=== PATIENT | female | born 1970 | race Two or more races ===

== ENCOUNTER 2025-04-14 07:16 | Inpatient (IN) | payer MEDICAID, SELFPAY ==
[2025-04-14] VITALS (13 sets, daily range): BP systolic 92–146; BP diastolic 51–91; PULSE 38–61; RESP 14–20; TEMP 36.3–37.1; O2SAT 92–99; BMI 26.6; BMI 26.9
--- NOTE | 2025-04-14 | XR_ITS ---
Examination: MRI abdomen with intravenous contrast. MRI abdomen without intravenous contrast. Date and time of exam: April 14, 2025, 1023 hours INDICATIONS: Multiple liver lesions on abdomen sonogram this morning Technique: Multiple axial, sagittal and coronal sections of the abdomen obtained. Transverse images, TR 6020, TE 107. T1 weighted transverse images, TR 582, TE 9.5. T2-weighted sagittal images, TR 4000, TE 105. T2-weighted sagittal images, TR 4000, TE 5. Coronal images, TR 4210, TE 107. Axial and coronal images are obtained post 19 cc intravenous injection, gadolinium. Findings: Precontrast images demonstrate heterogeneous signal throughout the liver 4 mm hyperintense lesion left lobe of the liver image 13 Postcontrast images demonstrate no convincing abnormal enhancement involving the relations Spleen is not enlarged No contralateral common bile duct stones Contracted gallbladder Spleen not enlarged No hydronephrosis No ascites IMPRESSION: No convincing enhancing liver lesions noted, consider focal areas of fatty sparing producing the liver lesions depicted on the ultrasound examination Recommend hepatic ultrasound follow-up in 3 months with a radiologist in attendance
--- NOTE | 2025-04-14 07:22 | EKG_ITS ---
[facility] Test Date: 2025-04-14 Pat Name: ROM ALMAGUER Department: Room: - Gender: Female Digital Assistant: : 1970 Requested By: Jesus Keller Order Number: [id number] Reading MD: Jesus Keller Measurements Intervals [place] Rate: 59 P: 17 [place]: 165 QRS: -7 QRSD: 89 T: 48 QT: 431 QTc: 427 Interpretive Statements SINUS BRADYCARDIA WITH OCCASIONAL VENTRICULAR PREMATURE COMPLEXES No previous ECG available for comparison /store/S0/[id number]/[id number].pdf
--- NOTE | 2025-04-14 07:33 | EDNOTE_ITS ---
ED Chest Pain RME/HPI General Chief Complaint: Chest Pain Stated Complaint: Left side chest pain, anxious Time Seen by Provider: 04/14/25 07:34 Arrival date/time: 04/14/25 07:16 RME / HPI RME / HPI narrative: See MDM for Dr. Landry's HPI documentation. Related Data Allergies Allergy/AdvReac Type Severity Reaction Status Date / Time No Known Drug Allergies Allergy Verified 04/14/25 07:21 Review of Systems Review of Systems Systems Reviewed: All systems reviewed, normal except as documented Past Medical History Past Medical History GASTROINTESTINAL: Positive Gastrointestinal Disorders (gastritis) and Colitis Family History FAMILY HISTORY: Negative Family Gastrointestinal Problems Surgical History SURGICAL: Positive Abdominal Surgery Social History SMOKING STATUS: Never smoker ED Exam Narrative Physical exam: See MDM for Dr. Landry's physical exam documentation. Course Quality Measures none Orders Category Date Time Status Bedside COVID-19 Antigen Test NOW Care 04/14/25 07:35 Active COVID-19 Screening Questionnaire NOW Care 04/14/25 13:04 Active Decision to Admit X1 Care 04/14/25 13:04 Completed EKG (ED ONLY) *Do not use* NOW Care 04/14/25 07:23 Completed EKG (ED ONLY) *Do not use* NOW Care 04/14/25 13:03 Completed MRI Screening NOW Care 04/14/25 09:36 Active Saline [Insert IV] NOW Care 04/14/25 07:35 Active Consult to Cardiology Stat Cons 04/14/25 12:46 Ordered EKG (ED Only) Stat Exams 04/14/25 07:22 Draft EKG (ED Only) Stat Exams 04/14/25 13:03 Draft MR abdomen wo/w con Stat Exams 04/14/25 Completed US gall bladder Stat Exams 04/14/25 07:35 Completed XR chest 1V portable Stat Exams 04/14/25 07:35 Completed Amylase Stat Lab 04/14/25 08:03 Completed BNP [B-Type Natriuretic Peptide] Stat Lab 04/14/25 08:03 Completed Bilirubin,Direct Stat Lab 04/14/25 08:03 Completed CBC Stat Lab 04/14/25 08:03 Completed CMP [Comprehensive Metabolic Panel] Stat Lab 04/14/25 08:03 Completed D-Dimer Stat Lab 04/14/25 08:03 Completed HCG Qualitative,Urine Stat Lab 04/14/25 08:45 Completed Influenza A & B Rapid Panel Stat Lab 04/14/25 08:50 Completed Lipase Stat Lab 04/14/25 08:03 Completed Magnesium Stat Lab 04/14/25 08:03 Completed PT [Prothrombin Time with INR] Stat Lab 04/14/25 08:03 Completed PTT [Partial Thromboplastin Time] Stat Lab 04/14/25 08:03 Completed TSH [Thyroid Stimulating Hormone] Stat Lab 04/14/25 08:03 Completed Troponin I Stat Lab 04/14/25 08:03 Completed Troponin I Stat Lab 04/14/25 11:59 Completed UA, C/S IF [Urinalysis, C/S if Indicated] Stat Lab 04/14/25 08:45 Completed ALPRazoLAM [Xanax] Med 04/14/25 07:35 Discontinued 0.5 mg PO X1 ONE Heparin Inj Med 04/14/25 12:45 Discontinued 4,000 unit IV X1 ONE Heparin/D5w 25K 250 ML Ivpb [Heparin in D5w Ivpb] Med 04/14/25 12:45 Active 25,000 unit in 250 ml IV 12 units/kg/hr LORazepam [Ativan Inj] Med 04/14/25 11:10 Discontinued 1 mg IVP X1 ONE Morphine* Inj Med 04/14/25 10:18 Discontinued 4 mg IM X1 ONE Morphine* Inj Med 04/14/25 10:28 Discontinued 4 mg IVP X1 ONE Ondansetron Inj [Zofran Inj] Med 04/14/25 07:35 Discontinued 4 mg IVP X1 ONE Ondansetron Inj [Zofran Inj] Med 04/14/25 11:10 Discontinued 4 mg IVP X1 ONE Pantoprazole Inj [Protonix Inj] Med 04/14/25 13:44 Discontinued 40 mg IVP X1 ONE Sodium Chloride 0.9% 1000 ml [Ns] 1,000 ml Med 04/14/25 07:35 Discontinued IV 999 mls/hr Sodium Chloride 0.9% 1000 ml [Ns] 1,000 ml Med 04/14/25 11:10 Discontinued IV 999 mls/hr EKG (RT) Stat RT 04/14/25 13:03 Draft Vital Signs Vital signs: Vital Signs Temperature 98.0 F 04/14/25 07:35 Pulse Rate 55 L 04/14/25 07:35 Respiratory Rate 19 04/14/25 07:35 Blood Pressure 136/86 H 04/14/25 07:35 Pulse Oximetry (%) 98 04/14/25 07:35 Oxygen Delivery Method Room Air 04/14/25 07:35 Pulse ox is 98% on room air which is adequate. Chest Pain MDM Narrative MDM Narrative:: This section includes all my notes and documentations, including HPI, PE, and ED course. Jesus Landry MD HPI: 54-year-old female here with severe substernal chest pain for the past couple hours. With nausea and anxiety. No recent illness with cough or fever. No shortness of breath. No leg pain or swelling. No other complaints. ROS: All negative except as documented in HPI. Physical Exam: General: Alert and oriented. Appears uncomfortable. Eyes: Conjunctivae and lids clear. ENT: No nasal congestion. Pharynx normal. Tympanic membrane normal bilaterally. Neck: Supple. No JVD. Heart: RRR. Lungs: No respiratory distress. Decreased air movement. No severe rhonchi, wheezing, rales. Chest: No tenderness with palpation. Abdomen: Soft and nontender. Normal bowel sounds. No distension. No rebound or guarding. Back: No CVA tenderness. Legs: No clubbing, cyanosis, edema. Skin: Warm and dry. Neuro: Alert and oriented X 3. Cranial Nerves II-XII grossly intact. No peripheral motor deficits. I reviewed all diagnostic test results: My interpretation of the EKG is: Sinus rhythm (59 bpm) with PACs and nonspecific ST-T changes. My interpretation of the chest x-ray is: NAD My review of the US gallbladder report is: Liver lesions noted, recommended MRI. My review of the MRI abdomen report is: No definite liver lesions, no acute findings. Blood/urine tests remarkable for delta troponin 1.780. Covid/Influenza are negative. At this point, diagnoses include: NSTEMI Treatment during the long course of ED included: IVF Zofran 4 mg IV x 2 Oral Xanax 0.5 mg Morphine 4 mg IV Ativan 1 mg IV Heparin bolus and drip Some improvement noted. I discussed the case with our art objects salesperson, Dr. Franco, and our hospitalist. About the presentation and exam and diagnostics and treatments here. And need of further care in the hospital. Will accept the patient. Jesus Landry MD Patient data External records reviewed:: [facility] previous records Clinical information provided by:: patient Social determinants that could affect healthcare access:: none Patient has the following chronic illnesses:: None reported How is presenting disease/condition affected by chronic disease/condition?: exacerbated by Evaluation data The following diagnostics were reviewed and interpreted by me:: EKG tracing(s) (My interpretation of the EKG is: Sinus rhythm (59 bpm) with PACs and nonspecific ST-T changes. Jesus Landry MD) Lab and/or radiology exams considered but not ordered:: None Interpretation Summary: I reviewed all diagnostic test results: My interpretation of the EKG is: Sinus rhythm (59 bpm) with PACs and nonspecific ST-T changes. My interpretation of the chest x-ray is: NAD My review of the US gallbladder report is: Liver lesions noted, recommended MRI. My review of the MRI abdomen report is: No definite liver lesions, no acute findings. Blood/urine tests remarkable for delta troponin 1.780. Covid/Influenza are negative. Medications / Prescriptions Medications or Prescriptions considered but not ordered:: None Medication administrations:: Medication Administration History Acetaminophen (Acetaminophen 325 Mg Tablet) 650 mg PO Q6H PRN PRN Reason: Fever >100.4 or Pain 1-4 Stop: 05/14/25 14:29 Last Admin: 04/14/25 14:59 Dose: 650 mg Documented By: BY Aspirin (Aspirin Ec 81 Mg Tabec) 81 mg PO QDAY [facility] Stop: 05/15/25 08:59 Atropine Sulfate (Atropine Sulf Inj 1 Mg/Ml Vial) 0.5 mg IVP Q3M PRN PRN Reason: BRADYCARDIA <30 Bismuth Subsalicylate (Bismuth Subsalicyl 1 Ml) 17.4 ml PO QID [facility] Stop: 05/14/25 15:14 Last Admin: 04/14/25 16:23 Dose: Not Given Documented By: DB Non-Admin Reason: Change of Condition Clopidogrel Bisulfate (Clopidogrel Bisulfate 75 Mg Tablet) 75 mg PO QDAY [facility] Stop: 05/15/25 08:59 Heparin Sodium/Dextrose (Heparin In D5w Ivpb) 25,000 unit in 250 mls @ 8.995 mls/hr IV .Q24H KATRIN; Protocol Stop: 04/28/25 12:44 Last Admin: 04/14/25 13:32 Dose: 12 units/kg/hr, 8.995 mls/hr Documented By: BY Co-signed By: BD Metronidazole (Metronidazole 250 Mg Tablet) 500 mg PO QID [facility] Stop: 04/21/25 16:59 Ondansetron HCl (Ondansetron Inj 2 Mg/Ml Inj 2 Ml) 4 mg IVP Q6H PRN; Protocol PRN Reason: NAUSEA OR VOMITING Stop: 05/14/25 14:29 Pantoprazole Sodium (Pantoprazole Inj 40 Mg Vial) 40 mg IVP BID [facility] Stop: 05/14/25 20:59 Tetracycline HCl (Tetracycline 250 Mg Capsule) 500 mg PO QID [facility] Stop: 04/21/25 16:59 Discontinued Medications Alprazolam (Alprazolam 0.25 Mg Tablet) 0.5 mg PO X1 ONE Stop: 04/14/25 07:36 Last Admin: 04/14/25 08:43 Dose: 0.5 mg Documented By: BY Aspirin (Aspirin Ec 81 Mg Tabec) 81 mg PO X1 ONE Stop: 04/14/25 14:58 Last Admin: 04/14/25 15:10 Dose: 81 mg Documented By: BY Atropine Sulfate (Atropine Sulf Inj 1 Mg/Ml Vial) 0.5 mg IVP Q5M PRN PRN Reason: BRADYCARDIA <30 Clopidogrel Bisulfate (Clopidogrel Bisulfate 75 Mg Tablet) 75 mg PO X1 ONE Stop: 04/14/25 14:58 Last Admin: 04/14/25 15:10 Dose: 75 mg Documented By: BY Heparin Sodium (Porcine) (Heparin Sod Inj 5000 Unit/Ml Vial) 4,000 unit IV X1 ONE; Protocol Stop: 04/14/25 12:46 Last Admin: 04/14/25 13:07 Dose: 4,000 unit Documented By: BY Co-signed By: ALEIDA Sodium Chloride (Ns) 1,000 mls @ 999 mls/hr IV .Q1H1M ONE Stop: 04/14/25 08:35 Last Infusion: 04/14/25 10:32 Dose: Infused Documented By: Admin: 04/14/25 08:43 Dose: 999 mls/hr Documented By: BY Sodium Chloride (Ns) 1,000 mls @ 999 mls/hr IV .Q1H1M ONE Stop: 04/14/25 12:10 Last Infusion: 04/14/25 12:21 Dose: Infused Documented By: Admin: 04/14/25 11:20 Dose: 999 mls/hr Documented By: BY Lactated Ringer's (Lactated Ringers) 500 mls @ 999 mls/hr IV .Q31M ONE Stop: 04/14/25 16:07 Last Infusion: 04/14/25 16:21 Dose: Infused Documented By: Admin: 04/14/25 15:43 Dose: 999 mls/hr Documented By: DB Comments: we only have 1000ml bag in ER, no 500ml, set the pump to only give 500ml Lorazepam (Lorazepam 2 Mg/Ml Vial) 1 mg IVP X1 ONE Stop: 04/14/25 11:11 Last Admin: 04/14/25 11:23 Dose: 1 mg Documented By: BY Metoclopramide HCl (Metoclopramide Inj 5 Mg/Ml Vial 2 Ml) 10 mg IVP X1 ONE; Protocol Stop: 04/14/25 14:30 Last Admin: 04/14/25 14:53 Dose: 10 mg Documented By: BY Morphine Sulfate (Morphine Sulf Inj 4 Mg/Ml Vial) 4 mg IM X1 ONE Stop: 04/14/25 10:19 Last Admin: 04/14/25 10:29 Dose: Not Given Documented By: EF Non-Admin Reason: switched to ivp Morphine Sulfate (Morphine Sulf Inj 4 Mg/Ml Vial) 4 mg IVP X1 ONE Stop: 04/14/25 10:29 Last Admin: 04/14/25 10:29 Dose: 4 mg Documented By: EF Ondansetron HCl (Ondansetron Inj 2 Mg/Ml Inj 2 Ml) 4 mg IVP X1 ONE; Protocol Stop: 04/14/25 07:36 Last Admin: 04/14/25 08:43 Dose: 4 mg Documented By: BY Ondansetron HCl (Ondansetron Inj 2 Mg/Ml Inj 2 Ml) 4 mg IVP X1 ONE; Protocol Stop: 04/14/25 11:11 Last Admin: 04/14/25 11:21 Dose: 4 mg Documented By: BY Pantoprazole Sodium (Pantoprazole Inj 40 Mg Vial) 40 mg IVP X1 ONE Stop: 04/14/25 13:45 Last Admin: 04/14/25 13:58 Dose: 40 mg Documented By: EF Treatment during the long course of ED from ar included: IVF Zofran 4 mg IV x 2 Oral Xanax 0.5 mg Morphine 4 mg IV Ativan 1 mg IV Heparin bolus and drip Consultations Consultation(s) initiated? (list below): Yes Consultation #1 (Physician, Specialty, Details): I discussed the case with our art objects salesperson, Dr. Franco, and our hospitalist. About the presentation and exam and diagnostics and treatments here. And need of further care in the hospital. Will accept the patient. Time: 12:43 Diagnosis Chest Pain Differential Diagnosis: pneumothorax, stable angina, unstable angina pectoris, atypical chest pain, st elevation myocardial infarction and costochondritis Most likely diagnosis given after review of the tests above:: NSTEMI Admission Indicated Admission indicated?: indicated Explain why admission is indicated or not indicated:: NSTEMI Admission Request Was there a request for admission?: Yes Admission Attestation Admission request attestation: Discussed case with our hospitalist service regarding admission. Discussed patients ED course, exam findings, labs, and radiology results. Agreed to accept the patient for admission. Disposition Plan Disposition Plan: Admit Critical Care Time Critical Care Time Critical Care Time: Yes Total Critical Care Time (min.): 36 Attestation: Due to a high probability of clinically significant, life threatening deterioration, the patient required my highest level of preparedness to intervene emergently and I personally spent this critical care time directly and personally managing the patient. This critical care time included obtaining a history; examining the patient; ordering and review of studies; arranging urgent treatment with development of a management plan; evaluation of patient's response to treatment; frequent reassessment; and discussions with family and other providers. It was exclusive of separately billable procedures and treating other patients and teaching time. Jesus Landry MD Discharge Plan Plan Patient Disposition: Admit Acute Care w/in Hospital Problem List Clinical Impression: Non-ST elevation MS (NSTEMI)
--- NOTE | 2025-04-14 07:35 | XR_ITS ---
EXAMINATION: AP chest single view TECHNIQUE: 1. AP port upright chest single view Date and time: April 14, 2025, 0816 hours INDICATIONS: Chest pain shortness of breath today. FINDINGS: Normal heart size Lungs are clear. The osseous structures are intact IMPRESSION: No active disease
--- NOTE | 2025-04-14 07:35 | XR_ITS ---
Examination: Abdomen sonogram, Limited Date and time of exam: April 14, 2025, 0737 hours INDICATIONS: Onset chest pain epigastric pain abdominal pain today Technique: Real-time lai scale transabdominal sonographic images of the upper abdomen obtained. Findings: Normal gallbladder. Normal common bile duct 0.4 cm Pancreatic head 2.4 cm Liver 17.0 cm, liver lesions, the largest in the right lobe 14 x 11 x 11 mm, the largest in the left lobe 27 x 24 x 28 mm Fatty infiltration throughout the liver Normal abdominal pedal portal venous flow Patent IVC IMPRESSION: Recommend MRI abdomen follow-up, pre and post contrast, to assess multiple liver lesions
[2025-04-14 08:36] LABS: Basophils # (Auto) 0.0 Thou/mm3 (0.0-0.2); Basophils % (Auto) 0 % (0-2.5); Eosinophils # (Auto) 0.3 Thou/mm3 (0.0-0.5); Eosinophils % (Auto) 3 % (0-10); Hematocrit 45.1 % (36.0-46.0); Hemoglobin 15.2 g/dL (12.0-16.0); Immature Granulocytes Auto 0.02 Thou/mm3 (0.00-0.00); Lymphocytes # (Auto) 3.4 Thou/mm3 (1.0-4.8); Lymphocytes % (Auto) 32 % (10-50); Mean Corpuscular HGB Conc 33.7 g/dl (31.0-37.0); Mean Corpuscular Hemoglobin 30.7 pg (25.0-35.0); Mean Corpuscular Volume 91 fL (80-100); Monocytes # (Auto) 0.8 Thou/mm3 (0.0-0.8); Monocytes % (Auto) 7 % (0-12); Neutrophils # (Auto) 5.9 Thou/mm3 (1.8-7.7); Neutrophils % (Auto) 57 % (37-80); Nucleated Red Blood Cell # 0.00 Thou/mm3 (0.00-0.00); Nucleated Red Blood Cell % 0 /100 WBC (0); Platelet Count 487 Thou/mm3 (140-440); RDW Standard Deviation 47.5 fL (36.4-46.3); Red Blood Count 4.95 Miln/mm3 (4.00-5.20); White Blood Count 10.5 Thou/mm3 (3.6-11.0)
[2025-04-14] MEDS: ONDANSETRON INJ 2 MG/ML INJ 2 ML 4 MG IVP ×2 (08:43→11:21)
[2025-04-14] MEDS: SODIUM CHLORIDE 0.9% 1000 ML 1,000 ML 999 ML IV ×2 (08:43→11:20)
[2025-04-14 08:50] LABS: B-Type Natriuretic Peptide < 20 pg/mL (0-100)
[2025-04-14 08:54] LABS: D-Dimer < 250 ng/mL (<600)
[2025-04-14 08:56] LABS: Alanine Aminotransferase 34 U/L (10-49); Albumin, Serum 4.8 gm/dL (3.5-5.0); Albumin/Globulin Ratio 1.7 (1.2-2.2); Alkaline Phosphatase 90 U/L (46-116); Amylase 56 U/L (30-118); Anion Gap 10 (7-16); Aspartate Amino Transferase 27 U/L (0-34); BUN/Creatinine Ratio 10 Ratio (12-20); Bilirubin,Direct 0.1 mg/dL (0.0-0.3); Bilirubin,Total 0.6 mg/dL (0.3-1.2); Blood Urea Nitrogen 8 mg/dL (9-23); Calcium 9.8 mg/dL (8.3-10.6); Calcium (Corrected) 9.8 mg/dL (8.5-10.1); Carbon Dioxide 29.4 mMol/L (20.0-31.0); Chloride 101 mMol/L (98-107); Creatinine (Component) 0.8 mg/dL (0.6-1.3); Estimated Creatinine Clearance 83.2 mL/min (>60); Globulin 2.9 gm/dL (2.3-3.5); Glucose 115 mg/dL (74-106); Lipase 27 U/L (12-53); Magnesium 2.1 mg/dL (1.6-2.6); Osmolality,Calculated 278 (275-295); Potassium 4.2 mMol/L (3.4-5.1); Sodium 140 mMol/L (136-145); Thyroid Stimulating Hormone 0.71 uIU/mL (0.55-4.78); Total Protein 7.7 gm/dL (5.7-8.2); Troponin I 0.045 ng/mL (0.0-0.045); eGFR > 60 See Note
[2025-04-14 09:03] LABS: Collection Type, Urine Clean Catch
[2025-04-14 09:28] LABS: Bilirubin,Urine Negative (Negative); Blood,Urine Negative (Negative); Clarity,Urine Turbid (Clear/Hazy); Color,Urine Yellow (Lt Yel-Yel); Culture Indicated,Urine Not Indicated; Glucose, Urine Negative (Negative); Ketones,Urine Negative (Negative); Leukocyte Esterase,Urine Positive (Negative); Nitrite,Urine Negative (Negative); PH,Urine 6.0 (5.0-7.0); Protein,Urine Trace (Neg - Trace); RBC,Urine 1 /hpf (0-3); Specific Gravity,Urine 1.021 (1.001-1.035); Squamous Epithelial Cell,Urine 20 /hpf (0-5); Urobilinogen,Urine Negative mg/dL (0.0-1.0); WBC,Urine 1 /hpf (0-5)
[2025-04-14 09:49] LABS: HCG Qualitative,Urine Negative
[2025-04-14 09:59] LABS: Sperm,Urine Present
[2025-04-14] MEDS: MORPHINE SULF INJ 4 MG/ML VIAL IVP (10:29)
[2025-04-14 11:18] LABS: Influenza A Ag Negative; Influenza B Ag Negative
[2025-04-14] MEDS: LORazepam 2 MG/ML VIAL 1 MG IVP (11:23)
[2025-04-14 12:41] LABS: Troponin I 1.780 ng/mL (0.0-0.045)
[2025-04-14 13:03] LABS: INR 1.0 (0.9-1.3); Partial Thromboplastin Time 30.9 Seconds (22.0-36.0); Prothrombin Time 10.8 Seconds (9.0-12.2)
--- NOTE | 2025-04-14 13:03 | EKG_ITS ---
[facility] Test Date: 2025-04-14 Pat Name: ROM ALMAGUER Department: Room: - Gender: Female Winch Runner: : 1970 Requested By: Melina Cortes Order Number: [id number] Reading MD: Melina Cortes Measurements Intervals [place] Rate: 42 P: 180 SC: 180 QRS: 192 QRSD: 82 T: 134 QT: 481 QTc: 404 Interpretive Statements ECTOPIC ATRIAL BRADYCARDIA LOW QRS VOLTAGE IN PRECORDIAL LEADS [QRS DEFLECTION < 1.0 mV IN CHEST LEADS] LATERAL MYOCARDIAL INFARCTION , OF INDETERMINATE AGE [40+ ms Q WAVE AND/OR ST/T ABNORMALITY IN I/aVL/V5/V6] Compared to ECG 04/14/2025 13:18:31 Bradycardia, nonsinus now present Low QRS voltage now present Myocardial infarct finding now present Sinus bradycardia no longer present T-wave abnormality no longer present /store/S0/[id number]/[id number].pdf
--- NOTE | 2025-04-14 13:03 | EKG_ITS ---
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
[2025-04-14] MEDS: HEPARIN SOD INJ 5000 UNIT/ML VIAL 4000 UNIT IV (13:07)
[2025-04-14] MEDS: Heparin/D5w 25K 250 ML Ivpb 25,000 UNIT/250 ML BAG 8.995 UNIT IV (13:32)
--- NOTE | 2025-04-14 14:36 | ECHO_ITS ---
Patient Info Name: Jessica Adrian Age: 54 years : 1970 Gender: Female Ht: 168 cm Wt: 75 kg BSA: 1.88 m2 BP: 113 / 72 mmHg HR: 53 bpm Heart Rhythm: Bradycardia Exam Date: 04/16/2025 9:28 AM Admit Date: 04/14/2025 Site: [facility] Patient Status: I Technical Quality: Fair Exam Type: CA echo doppler complete [employer] Assistant: Janis Betancur Ordering Physician: Wilman Malloy Study Info Indications NSTEMI, assess EF, wall motion, and valves - Primary Location: S2NX Left Ventricular Outflow Tract Name Value Normal LVOT 2D LVOT Diameter 1.6 cm LVOT Doppler LVOT Peak Velocity 95 cm/s LVOT Mean Gradient 2 mmHg LVOT VTI 26 cm LVOT VTI/AV VTI Ratio 0.7 LVOT Stroke Volume 52 ml Pulmonic Valve Name Value Normal PV Doppler PV Peak Velocity 94 cm/s Mitral Valve Name Value Normal MV Doppler MV Decel [place] 467 cm/s2 MV PHT 52 ms MV Area (PHT) 4.2 cm2 4.0-5.0 MV Diastolic Function MV E Peak Velocity 84 cm/s MV A Peak Velocity 73 cm/s MV E/A 1.2 MV Annular TDI MV Septal e' Velocity 7.1 cm/s MV E/e' (Septal) 11.9 MV Lateral e' Velocity 11.1 cm/s MV E/e' (Lateral) 7.6 MV e' Average 9.09 cm/s MV E/e' (Average) 9.7 Tricuspid Valve Name Value Normal TV Regurgitation Doppler TR Peak Velocity 185 cm/s TV Annular TDI TV Lateral Radha s' Velocity 16.0 cm/s >=9.5 Aorta Name Value Normal Ascending Aorta Ao Root Diameter (MM) 2.6 cm Ao Root Diam Index (MM) 1.4 cm/m2 Aortic Valve Name Value Normal AV 2D/MM AV Cusp Sep (MM) 2.0 cm AV Doppler AV Peak Velocity 155 cm/s AV Mean Gradient 5 mmHg AV VTI 40 cm AV Area (Cont Eq VTI) 1.3 cm2 >=3.0 AV Area (Cont Eq [place]) 1.2 cm2 AV DI ([place]) 0.61 AV Regurgitation 2D LVOT Area 2.0 cm2 Ventricles Name Value Normal LV Dimensions 2D/MM IVS Diastolic Thickness (2D) 0.7 cm 0.6-0.9 LVID Diastole (2D) 4.2 cm 3.8-5.2 LVIW Diastolic Thickness (2D) 0.9 cm 0.6-0.9 LVID Systole (2D) 2.7 cm 2.2-3.5 LVOT Diameter 1.6 cm LV Mass (2D Cubed) 101.29 g 67.00-162.00 LV Mass Index (2D Cubed) 54 g/m2 43-95 Relative Wall Thickness (2D) 0.43 <=0.42 IVS/LVIW Diastolic Thickness (2D) 0.78 0.00-1.50 LV Fractional Shortening/Ejection Fraction 2D/MM LV Fractional Shortening (2D) 36 % 27-45 LV EF (2D [place]holz) 66 % LV Diastolic Volume (4C MOD) 67 ml LV EF (4C MOD) 63 % LV Diastolic Volume (2C MOD) 70 ml LV EF (2C MOD) 69 % LV Diastolic Volume (BP MOD) 73 ml 46-106 LV Diastolic Volume Index (BP MOD) 39 ml/m2 29-61 LV Systolic Volume (BP MOD) 24 ml 14-42 LV Systolic Volume Index (BP MOD) 13 ml/m2 8-24 LV EF (BP MOD) 67 % 54-74 LV Diastolic Length (4C) 5.8 cm LV Systolic Length (4C) 4.8 cm LV Stroke Volume (4C MOD) 42 ml RV Dimensions 2D/MM TV Lateral Radha s' Velocity 16.0 cm/s >=9.5 Atria Name Value Normal LA Dimensions LA Dimension (MM) 2.6 cm 2.7-3.8 LA Volume (4C A-L) 23 ml LA Volume (BP A-L) 31 ml Left Ventricle Left ventricular chamber dimension is normal. Left ventricular systolic function is normal with an ejection fraction by Biplane Method of Discs of 67 %. There is normal geometry noted in the left ventricle. Left ventricular segmental wall motion is normal. There is normal diastolic function in the left ventricle. Right Ventricle Right ventricular chamber dimension is normal. Right ventricular systolic function is normal. Left Atrium Left atrial chamber dimension is normal. Right Atrium Right atrial chamber dimension is normal. Aortic Valve The aortic valve is trileaflet. There is no aortic valve sclerosis. There is no aortic valve stenosis with a peak velocity of 155 cm/s, mean gradient of 5 mmHg, and aortic valve area of 1.3 cm2. There is no aortic valve regurgitation. Pulmonic Valve The pulmonic valve is normal. There is no pulmonic valve stenosis. There is no pulmonic regurgitation. Mitral Valve The mitral valve has normal leaflets. There is no mitral valve stenosis. There is mild mitral valve regurgitation. Tricuspid Valve There is no tricuspid valve stenosis. There is mild tricuspid valve regurgitation. Pericardium/Pleural The pericardium appears normal. There is no pericardial effusion. No pleural effusion visualized. Aorta The aortic measurements are indexed to age and body surface area. Summary 1. Left ventricle size is normal and systolic function is normal. Estimated ejection fraction is 55-60%. There is normal diastolic function. There is normal geometry noted. 2. right ventricle chamber size is normal and systolic function is normal. Report Signatures Finalized by Zohaib Franco on 04/16/2025 02:25 PM
--- NOTE | 2025-04-14 14:38 | ESHP_ITS ---
<Statement entered by Jj Mayfield MD - 04/14/25 17:24> I saw and examined patient personally and supervised PGY 1 resident, Dr. Malloy with formulating a management plan. I agree with the documentation with the exceptions as listed below. Patient is a 54-year-old female with past medical history significant for hyperlipidemia and H. pylori infection diagnosed last week by urea breath test. She presented with a chief complaint of substernal chest pain for 3 hours prior to hospitalization. She will be admitted for NSTEMI. Problem list: 1. NSTEMI 2. ACS 3. Asymptomatic bradycardia 4. Intractable nausea and vomiting 5. H. pylori infection 6. MASLD 7. Incidental liver lesions Patient presented with substernal chest pain for past 3 hours prior to presentation. Described as pressure-like, 10 out of 10 in intensity with no aggravating or relieving factors. Initial troponin was 0.045 which up trended to 1.78. EKG showed sinus bradycardia with occasional PVCs. Rate 59 and QTc 427. For her NSTEMI embosser apprentice, Dr. Franco recommended starting patient on heparin infusion along with aspirin and Plavix. He said she may need cardiac catheterization on Thursday. [facility] is closed over the weekend. If patient becomes hypotensive, bradycardic or otherwise hemodynamically unstable she will need emergent transfer to another facility with 24-hour cardiac catheterization lab services. Patient also has a very low threshold for upgrade to the ICU if she becomes hemodynamically unstable. For patient's H. pylori infection she was started on quadruple therapy with pantoprazole, bismuth, tetracycline and metronidazole. With regards to her intractable nausea and vomiting she was scheduled on ondansetron and metoclopramide 10 Mg IV x 1 was given. Plan of care discussed with Attending Dr. Sophia Mayfield MD PGY 2 Disclaimer: This note was dictated by speech recognition. Minor errors in medical staff manager may be present due to voice recognition software. Documentation for date of: 04/14/25 HPI History of Present Illness History of present illness: Patient is a Kazakh-speaking 54-year-old female with a PMH of hyperlipidemia and H. pylori infection diagnosed last week by urea breath test who presented on 04/14 with a chief complaint of substernal chest pain for 3 hours prior to hospitalization. History was obtained mostly from patient's Kazakh-speaking daughter via aerospace project manager services. Per daughter, patient's chest pain started at 5 AM in the morning and was substernal with radiation to the back and arm with associated hand numbness. Patient also endorsed that the pain was burning in character. Her chest pain was reported to have been ongoing for years and usually was alleviated by drinking cold water. However, the pain from this morning was much more severe and intractable. Patient endorsed vomiting twice before arriving in the ED but denied symptoms of fever, cough, shortness of breath, abdominal pain, painful urination, or lower extremity edema. Pain rated at a 10 out of 10. PMH: As above PSH: Tubal ligation Medications: Unspecified medication for hyperlipidemia Allergies: NKDA FH: Dad has prostate cancer for which he has had multiple surgeries, brother of throat cancer SH: No history of alcohol use, smoking, or recreational drug use In the ED, vitals showed: BP 136/86 HR 55 RR 19 Temp 98.0 SpO2 98% on room air CBC showed platelet count 487 but was otherwise WNL. Coagulation panel was WNL. CMP showed troponin I 1.780 at 11:59 but later up trended to 22.758 at 17:55. UA was bland. Serological studies were negative for influenza A and B. Imagin/31 abdominal MRI was unremarkable. 04/14 EKG at 07: 31 showed sinus bradycardia of HR 59 with occasional VPCs but repeat EKG at 15: 35 showed ectopic atrial bradycardia of HR 42 with low QRS voltage in precordial leads and new lateral myocardial infarction of indeterminate age. 04/14 CXR was unremarkable. 04/14 gallbladder ultrasound showed multiple liver lesions and fatty infiltration throughout the liver. In the ED, patient was given IV Zofran, p.o. alprazolam, IM and IV morphine sulfate, IV lorazepam, IV heparin, IV Protonix, IV Reglan, p.o. aspirin, p.o. Plavix, and a total of 2.5 L fluid bolus. Patient was admitted for the work-up and management of NSTEMI. Cardiology (Dr. Franco) was consulted and is closely following the case. Review of Systems Review of Systems Systems Reviewed: All systems reviewed, normal except as documented Exam Vital Signs Temp Pulse Resp BP Pulse Ox O2 Del Method 98.6 F 57 L 17 119/89 H 92 L Room Air 04/14/25 12:23 04/14/25 13:42 04/14/25 13:42 04/14/25 13:42 04/14/25 13:42 04/14/25 13:42 Narrative Exam General: A/O x3, in some distress. Skin: Warm, dry, intact, no obvious rash. Head: Normocephalic, atraumatic. Eyes: PERRL, EOMI. Anicteric, vision grossly intact. Ears: No ear pain, no ear discharge, Hearing grossly intact. Nose: No nasal discharge. Mouth/Throat: Oral mucosa moist. No obvious lesions in oropharynx. Cardiovascular: Soft heartbeats. Bradycardic rate and normal rhythm, no murmur, no JVD or carotid bruits. +S1/S2. Respiratory: Bilateral lungs are clear to auscultation, respirations unlabored, no crackles, no wheezing. No accessory muscle use. Gastrointestinal: Soft, nontender, non-distended, no palpable masses. No guarding or rebound tenderness. Peristalsis present. Extremities: Symmetrical, no significant deformities. No edema, no cyanosis, no clubbing. 2+ radial pulse bilaterally, 2+ posterior tibial pulse bilaterally. Neuro: No focal deficits observed. Conversant, moving all extremities. No overt cerebellar signs/incoordination. Psychiatric: Seemingly in too much discomfort to answer interview questions Results: Labs 04/15/25 03:07 04/15/25 03:07 Labs: Short CBC 04/14/25 Range/Units 08:03 WBC 10.5 (3.6-11.0) Thou/mm3 Hgb 15.2 (12.0-16.0) g/dL Hct 45.1 (36.0-46.0) % Plt Count 487 H (140-440) Thou/mm3 BMP 04/14/25 08:03 Sodium 140 Potassium 4.2 Chloride 101 Carbon Dioxide 29.4 BUN 8 L Creatinine 0.8 Glucose 115 H Calcium 9.8 Cardiac Enzymes 04/14/25 04/14/25 Range/Units 08:03 11:59 Troponin I 0.045 1.780 H* D (0.0-0.045) ng/mL Liver Function 04/14/25 Range/Units 08:03 Total Bilirubin 0.6 (0.3-1.2) mg/dL Direct Bilirubin 0.1 (0.0-0.3) mg/dL AST 27 (0-34) U/L ALT 34 (10-49) U/L Alkaline Phosphatase 90 (46-116) U/L Albumin 4.8 (3.5-5.0) gm/dL Urine 04/14/25 Range/Units 08:45 Urine Color Yellow (Lt Yel-Yel) Urine Clarity Turbid A (Clear/Hazy) Urine pH 6.0 (5.0-7.0) Ur Specific [place] 1.021 (1.001-1.035) Urine Protein Trace (Neg - Trace) Urine Glucose (UA) Negative (Negative) Quality Measures Quality Measures none Medications Home Medications and Allergies Home Medications ?Medication ?Instructions ?Recorded ?Confirmed ?Type acetaminophen 325 mg tablet 650 mg PO Q4H PRN pain 07/0904/15/25 History (Tylenol) Allergies Allergy/AdvReac Type Severity Reaction Status Date / Time No Known Drug Allergies Allergy Verified 04/14/25 07:21 Visit Medications Acetaminophen (Acetaminophen 325 Mg Tablet) 650 mg PO Q6H PRN PRN Reason: Fever >100.4 or Pain 1-4 Stop: 05/14/25 14:29 Heparin Sodium/Dextrose (Heparin In D5w Ivpb) 25,000 unit in 250 mls @ 8.995 mls/hr IV .Q24H KATRIN; Protocol Stop: 04/28/25 12:44 Last Admin: 04/14/25 13:32 Dose: 12 units/kg/hr, 8.995 mls/hr Ondansetron HCl (Ondansetron Inj 2 Mg/Ml Inj 2 Ml) 4 mg IVP Q6H PRN; Protocol PRN Reason: NAUSEA OR VOMITING Stop: 05/14/25 14:29 Discontinued Medications Alprazolam (Alprazolam 0.25 Mg Tablet) 0.5 mg PO X1 ONE Stop: 04/14/25 07:36 Last Admin: 04/14/25 08:43 Dose: 0.5 mg Heparin Sodium (Porcine) (Heparin Sod Inj 5000 Unit/Ml Vial) 4,000 unit IV X1 ONE; Protocol Stop: 04/14/25 12:46 Last Admin: 04/14/25 13:07 Dose: 4,000 unit Sodium Chloride (Ns) 1,000 mls @ 999 mls/hr IV .Q1H1M ONE Stop: 04/14/25 08:35 Last Infusion: 04/14/25 10:32 Dose: Infused Sodium Chloride (Ns) 1,000 mls @ 999 mls/hr IV .Q1H1M ONE Stop: 04/14/25 12:10 Last Infusion: 04/14/25 12:21 Dose: Infused Lorazepam (Lorazepam 2 Mg/Ml Vial) 1 mg IVP X1 ONE Stop: 04/14/25 11:11 Last Admin: 04/14/25 11:23 Dose: 1 mg Metoclopramide HCl (Metoclopramide Inj 5 Mg/Ml Vial 2 Ml) 10 mg IVP X1 ONE; Protocol Stop: 04/14/25 14:30 Morphine Sulfate (Morphine Sulf Inj 4 Mg/Ml Vial) 4 mg IM X1 ONE Stop: 04/14/25 10:19 Last Admin: 04/14/25 10:29 Dose: Not Given Morphine Sulfate (Morphine Sulf Inj 4 Mg/Ml Vial) 4 mg IVP X1 ONE Stop: 04/14/25 10:29 Last Admin: 04/14/25 10:29 Dose: 4 mg Ondansetron HCl (Ondansetron Inj 2 Mg/Ml Inj 2 Ml) 4 mg IVP X1 ONE; Protocol Stop: 04/14/25 07:36 Last Admin: 04/14/25 08:43 Dose: 4 mg Ondansetron HCl (Ondansetron Inj 2 Mg/Ml Inj 2 Ml) 4 mg IVP X1 ONE; Protocol Stop: 04/14/25 11:11 Last Admin: 04/14/25 11:21 Dose: 4 mg Pantoprazole Sodium (Pantoprazole Inj 40 Mg Vial) 40 mg IVP X1 ONE Stop: 04/14/25 13:45 Last Admin: 04/14/25 13:58 Dose: 40 mg Assessment & Plan Plan Patient is a Kazakh-speaking 54-year-old female with a PMH of hyperlipidemia and H. pylori infection diagnosed last week by urea breath test who presented on 04/14 with a chief complaint of substernal chest pain for 3 hours prior to hospitalization. Patient was admitted for the work-up and management of NSTEMI. Cardiology (Dr. Franco) was consulted and is closely following the case. #NSTEMI #ACS #CAD #Asymptomatic bradycardia On 04/14 admission: troponin 1.780 (at 11:59) & EKG (at 07:31) showed sinus bradycardia of heart rate [address] elevations Patient complained of substernal chest pain beginning at 05:00 of 04/14 that was characterized as burning in nature and radiated to the back and arm with associated hand numbness Cardiology (Dr. Franco) was consulted after patient started becoming hypotensive with SBP in the 90s and DBP in the 60s along with bradycardia of HR in the high 40s At the time, cardiology recommended continuing the patient on aspirin, Plavix, heparin, and ordering an echocardiogram with the possibility of patient requiring heart catheterization Same-day repeat EKG at 15:35 showed ectopic atrial bradycardia of HR 42 with low QRS voltage in precordial leads and new lateral myocardial infarction of indeterminate age Same-day repeat troponin at 17:55 showed a dramatic increase in troponin from 1.780 to 22.758 EDDIE ACS Score: 85 points (2% probability of from admission to 6 months, calculated at 20:35) ROE Score for UA/NSTEMI: 2 points (8% all-cause mortality risk, calculated at 20:48) Dx: -04/14 echocardiogram ordered, showed ___ -Lipid panel ordered, showed ___ -Hemoglobin A1c ordered, showed ___ -TSH level ordered, was WNL @ 0.71 Rx: -IV heparin gtt @ 12 units/kg/hr -PO aspirin 81 mg qD -PO Plavix 75 mg qD -IV atropine 0.5 mg q3MIN prn for bradycardic HR<30 -Pain management: PO acetaminophen 650 mg q6HR prn for pain 1-4 -Trend troponin q6HR -Consulted cardiology (Dr. Franco), recommended continued medical management for now instead of transfer to tertiary care center for cardiac catheterization (no cardiac catheterization lab coverage for [facility] on weekends) #Intractable nausea and vomiting, i/s/o NSTEMI and recent diagnosis of H. pylori infection Per daughter, patient vomited twice before arriving in the ED During this racebook writer's patient interview, patient was noted to have some episodes of retching but production of actual vomitus was not witnessed Of note, the above symptoms occur in the setting of active NSTEMI and a diagnosis of H. pylori infection 1 week ago by urea breath test No signs of QTc prolongation on recent EKGs Rx: -IV Reglan 10 mg x 1 -IV Zofran 4 mg every 6 hours as needed for nausea -Treat underlying causes (NSTEMI and H. pylori infection) #H. pylori infection Per daughter, patient was recently diagnosed with H.pylori infection 1 week ago by urea breath test Patient endorses symptoms of burning chest pain and vomiting Rx: -IV Protonix 40 mg twice daily -PO bismuth subsalicylate 17.4 mL 4 times daily -PO tetracycline 500 mg 4 times daily -PO Flagyl 500 mg 4 times daily #MASLD #Incidental liver lesions Dx: -04/14 gallbladder ultrasound showed multiple liver lesions (also seen on 04/14 precontrast abdominal MRI images) and fatty infiltration throughout the liver Rx: -Outpatient follow-up Hospital Management: Disposition: Admitted to telemetry for workup and management of NSTEMI Diet: NPO GI Prophylaxis: IV Protonix 40 mg twice daily Bowel Prophylaxis: None DVT Prophylaxis: IV heparin drip CODE STATUS: Full Code I have examined the patient and conferred with my attending, Dr. Cortes, and my senior resident, Dr. Mayfield, regarding them. Wilman Malloy DO PGY-1 Internal Medicine Attending Provider Attestation/Addendum I have seen and examined the patient. I was physically present for the puente portions of the services provided including history, physical exam, diagnosis, treatment plans and orders. I agree with assessment and plan of care as documented by residents. After examination of the patient and review of the clinical data I feel that this patient needs admission to the hospital for further treatment/evaluation. Even though this this note was carefully revised there may still be minor errors in medical staff manager due to voice recognition software. Melina Cortes MD
[2025-04-14] MEDS: METOCLOPRAMIDE INJ 5 MG/ML VIAL 2 ML 10 MG IVP (14:53)
[2025-04-14] MEDS: ACETAMINOPHEN 325 MG TABLET 650 MG PO ×2 (14:59→19:04)
--- NOTE | 2025-04-14 15:06 | PC.NURSE ---
call made to DR Sharpe to notify of patient curent condition , patient is experiencing shortness of breath, states she feels as if something is holding her breath in abdomen up to chest, patient is also noted to be bradycardic in the low 42, and bp 92/62, patinet placced on o2 nasal canula for comfort, awaiting further orders from Dr sharpe
[2025-04-14] MEDS: CLOPIDOGREL BISULFATE 75 MG TABLET PO (15:10)
[2025-04-14] MEDS: ASPIRIN EC 81 MG TABEC PO (15:10)
--- NOTE | 2025-04-14 15:12 | EKG_ITS ---
[facility] Test Date: 2025-04-14 Pat Name: ROM ALMAGUER Department: Room: [facility] Gender: Female Instrument Inspector: : [id number] Requested By: Melina Cortes Order Number: [id number] Reading MD: Melina Cortes Measurements Intervals Hatch Rate: 57 P: 11 WA: 192 QRS: -5 QRSD: 89 T: 54 QT: 421 QTc: 412 Interpretive Statements SINUS BRADYCARDIA WITH FREQUENT VENTRICULAR PREMATURE COMPLEXES RIGHT ATRIAL ENLARGEMENT [0.3mV P-WAVE] VOLTAGE CRITERIA FOR LVH [MEETS CRITERIA IN ONE OF: R(aVL), S(V1), R(V5), R(V5/V6)+S(V1)] MODERATE ST DEPRESSION [0.05+ mV ST DEPRESSION] No previous ECG available for comparison /[id number]/[email or web address]/[id number]
[2025-04-14] MEDS: RINGERS LACTATED 500 ML 500 ML 999 ML IV (15:43)
--- NOTE | 2025-04-14 16:33 | ESCONSULT_ITS ---
HPI Data of Consult Requesting Physician: Melina Cortes MD Primary Care Provider: Physician No Primary/Family Consult Narrative History of present illness: 54 yr old F seen in the ER c/o of chest pain over the substernal region initioal EKG no acute ST-T wave changes troponin Positive at 1.7 currently chest pain free cc:: cc: Melina Cortes MD Meds Home Medications and Allergies Allergies Allergy/AdvReac Type Severity Reaction Status Date / Time No Known Drug Allergies Allergy Verified 04/14/25 07:21 Exam Vital Signs Temp Pulse Resp BP Pulse Ox O2 Del Method O2 Flow Rate 97.6 F 51 L 17 103/51 L 98 Nasal Cannula 2 04/14/25 15:03 04/14/25 16:12 04/14/25 16:12 04/14/25 16:12 04/14/25 16:12 04/14/25 16:12 04/14/25 16:12 Routine HEENT Exam Head: Present normocephalic and atraumatic Eye: Present EOMI and PERRL ENT: Present mucous membranes moist Routine Neck Exam Neck: Present supple and trachea midline Routine Respiratory Exam Respiratory: Present chest non-tender, lungs clear, normal breath sounds and no resp distress Routine Cardiovascular Exam Cardiovascular: Present RRR Routine Abdominal Exam Abdominal: Present soft and normoactive bowel sounds Routine Extremities Exam Extremities: Present full ROM Routine Skin Exam Skin: Present intact, dry and warm Routine Neurological Exam Neurological: Present alert, oriented X3 and CN II-XII intact Routine Psychiatric Exam Psychiatric: Present normal affect and normal thought process Results Labs 04/14/25 08:03 04/14/25 08:03 Labs: Short CBC 04/14/25 Range/Units 08:03 WBC 10.5 (3.6-11.0) Thou/mm3 Hgb 15.2 (12.0-16.0) g/dL Hct 45.1 (36.0-46.0) % Plt Count 487 H (140-440) Thou/mm3 BMP 04/14/25 08:03 Sodium 140 Potassium 4.2 Chloride 101 Carbon Dioxide 29.4 BUN 8 L Creatinine 0.8 Glucose 115 H Calcium 9.8 Cardiac Enzymes 04/14/25 04/14/25 Range/Units 08:03 11:59 Troponin I 0.045 1.780 H* D (0.0-0.045) ng/mL Liver Function 04/14/25 Range/Units 08:03 Total Bilirubin 0.6 (0.3-1.2) mg/dL Direct Bilirubin 0.1 (0.0-0.3) mg/dL AST 27 (0-34) U/L ALT 34 (10-49) U/L Alkaline Phosphatase 90 (46-116) U/L Albumin 4.8 (3.5-5.0) gm/dL Urine 04/14/25 Range/Units 08:45 Urine Color Yellow (Lt Yel-Yel) Urine Clarity Turbid A (Clear/Hazy) Urine pH 6.0 (5.0-7.0) Ur Specific [place] 1.021 (1.001-1.035) Urine Protein Trace (Neg - Trace) Urine Glucose (UA) Negative (Negative) Assessment and Plan Assessment and plan (1) Non-ST elevation [place] (NSTEMI): Status: Acute (2) CAD (coronary artery disease): Status: Acute Additional Assessment & Plan Additional Plan: continue asa/ plavix/ heparin echo will f/u may need heart cath
[2025-04-14] MEDS: BISMUTH SUBSALICYL 1 ML 17.4 ML PO ×2 (18:02→21:28)
[2025-04-14 20:39] LABS: Partial Thromboplastin Time 40.8 Seconds (22.0-36.0)
[2025-04-14] MEDS: HEPARIN SOD INJ 5000 UNIT/ML VIAL 2000 UNIT IVP (21:14)
[2025-04-15] VITALS: BP 110/58; PULSE 40; PULSE 45; RESP 12; TEMP 36.7; O2SAT 97
[2025-04-15 03:31] LABS: Basophils # (Auto) 0.0 Thou/mm3 (0.0-0.2); Basophils % (Auto) 0 % (0-2.5); Eosinophils # (Auto) 0.2 Thou/mm3 (0.0-0.5); Eosinophils % (Auto) 3 % (0-10); Hematocrit 38.4 % (36.0-46.0); Hemoglobin 13.2 g/dL (12.0-16.0); Immature Granulocytes Auto 0.03 Thou/mm3 (0.00-0.00); Lymphocytes # (Auto) 2.1 Thou/mm3 (1.0-4.8); Lymphocytes % (Auto) 29 % (10-50); Mean Corpuscular HGB Conc 34.4 g/dl (31.0-37.0); Mean Corpuscular Hemoglobin 30.8 pg (25.0-35.0); Mean Corpuscular Volume 90 fL (80-100); Monocytes # (Auto) 0.6 Thou/mm3 (0.0-0.8); Monocytes % (Auto) 8 % (0-12); Neutrophils # (Auto) 4.2 Thou/mm3 (1.8-7.7); Neutrophils % (Auto) 59 % (37-80); Nucleated Red Blood Cell # 0.00 Thou/mm3 (0.00-0.00); Nucleated Red Blood Cell % 0 /100 WBC (0); Platelet Count 384 Thou/mm3 (140-440); RDW Standard Deviation 47.0 fL (36.4-46.3); Red Blood Count 4.28 Miln/mm3 (4.00-5.20); White Blood Count 7.0 Thou/mm3 (3.6-11.0)
[2025-04-15 03:36] LABS: Glucose Estimated Average 117 mg/dL (80-131); Hemoglobin A1C 5.7 % Hgb (4.8-6.0)
[2025-04-15 03:47] LABS: Alanine Aminotransferase 35 U/L (10-49); Albumin, Serum 3.9 gm/dL (3.5-5.0); Albumin/Globulin Ratio 1.7 (1.2-2.2); Alkaline Phosphatase 71 U/L (46-116); Anion Gap 9 (7-16); Aspartate Amino Transferase 84 U/L (0-34); BUN/Creatinine Ratio 8 Ratio (12-20); Bilirubin,Total 0.4 mg/dL (0.3-1.2); Blood Urea Nitrogen 5 mg/dL (9-23); Calcium 9.1 mg/dL (8.3-10.6); Calcium (Corrected) 9.2 mg/dL (8.5-10.1); Carbon Dioxide 27.2 mMol/L (20.0-31.0); Cardiac Risk Estimate 6.4 RATIO (3.7-5.6); Chloride 107 mMol/L (98-107); Cholesterol 218 mg/dL (132-200); Creatinine (Component) 0.6 mg/dL (0.6-1.3); Estimated Creatinine Clearance 111.5 mL/min (>60); Globulin 2.3 gm/dL (2.3-3.5); Glucose 104 mg/dL (74-106); HDL Cholesterol 34 mg/dL (40-60); LDL Cholesterol,Calculated 154 mg/dL (0-130); Osmolality,Calculated 282 (275-295); Potassium 3.7 mMol/L (3.4-5.1); Sodium 143 mMol/L (136-145); Thyroid Stimulating Hormone 0.38 uIU/mL (0.55-4.78); Total Protein 6.2 gm/dL (5.7-8.2); Triglycerides 150 mg/dL (30-150); eGFR > 60 See Note
[2025-04-15 03:49] LABS: Troponin I 10.144 ng/mL (0.0-0.045)
[2025-04-15 04:00] VITALS: BP 107/67; PULSE 41; PULSE 42; RESP 18; TEMP 36.4; O2SAT 97
[2025-04-15 04:08] LABS: Partial Thromboplastin Time 62.9 Seconds (22.0-36.0)
[2025-04-15 06:00] VITALS: BMI 26.9
[2025-04-15 08:00] VITALS: BP 111/68; PULSE 41; PULSE 44; RESP 17; TEMP 37; O2SAT 94
[2025-04-15] MEDS: POTASSIUM CHLORIDE 10% 20 MEQ/15 ML UDC 40 MEQ PO (09:29)
[2025-04-15] MEDS: CLOPIDOGREL BISULFATE 75 MG TABLET PO (09:30)
[2025-04-15] MEDS: ASPIRIN EC 81 MG TABEC PO (09:30)
--- NOTE | 2025-04-15 09:35 | ESPR_ITS ---
<Statement entered by Kiara Verde MD - 04/16/25 12:31> Patient was seen and examined by me personally. I have directly supervised and reviewed documentation by the team resident and agree with its findings with any exceptions or additional findings as below. Plan of care was discussed with the attending, Dr. Cortes. Patient seen at bedside this morning, reports no further chest pain but does endorse pain in the back. Troponin downtrended overnight to 10.144. Vitals remain stable. Patient has bradycardia in the 40s however is asymptomatic and denies dizziness or lightheadedness. Will continue with heparin drip and plan for cardiac cath per Dr. Franco on Thursday. Continue with H. pylori treatment and quadruple therapy. Patient was educated to take bismuth along with the other medications for the treatment. Kiara Verde, PGY-3 Documentation for date of: 04/15/25 Subjective Subjective Interval history: No overnight events. Patient was examined at bedside; they appear A&Ox3 and in NAD. Today, patient complains of back pain as well as chest pain that worsens when she takes a deep breath in. Vitals/labs today significant for BP 107/67, HR 41, APTT 40.8->62.9, potassium 3.7, AST 27->84, ALT 34->35. Troponin down- trended overnight from 22.758->10.144. Lipid panel showed - (cholesterol 218, LDL 154). Physical exam notable for continued bradycardia but was otherwise benign and unremarkable. Cardiology (Dr. Franco) is onboard and will be consulted regarding whether patient will require cardiac catheterization on Thursday or at some point during this current admission. In the meantime, patient will continue being treated with IV heparin gtt, PO aspirin, and PO Plavix for medical management of her NSTEMI. She will also continue receiving quadruple therapy consisting of IV Protonix, PO bismuth subsalicylate, PO tetracycline, and PO Flagyl for her H. pylori infection. Exam Vital Signs Temp Pulse Resp BP Pulse Ox O2 Del Method O2 Flow Rate 98.6 F 44 L 17 111/68 94 L Room Air 0.5 04/15/25 08:00 04/15/25 08:00 04/15/25 08:00 04/15/25 08:00 04/15/25 08:00 04/15/25 08:00 04/15/25 04:00 Narrative Exam General: A/O x3, in NAD. Skin: Warm, dry, intact, no obvious rash. Head: Normocephalic, atraumatic. Eyes: PERRL, EOMI. Anicteric, vision grossly intact. Ears: No ear pain, no ear discharge, Hearing grossly intact. Nose: No nasal discharge. Mouth/Throat: Oral mucosa moist. No obvious lesions in oropharynx. Cardiovascular: Soft heartbeats. Bradycardic rate and normal rhythm, no murmur, no JVD or carotid bruits. +S1/S2. Respiratory: Bilateral lungs are clear to auscultation, respirations unlabored, no crackles, no wheezing. No accessory muscle use. Gastrointestinal: Soft, nontender, non-distended, no palpable masses. No guarding or rebound tenderness. Peristalsis present. Extremities: Symmetrical, no significant deformities. No edema, no cyanosis, no clubbing. 2+ radial pulse bilaterally, 2+ posterior tibial pulse bilaterally. Neuro: No focal deficits observed. Conversant, moving all extremities. No overt cerebellar signs/incoordination. Psychiatric: Cooperative, appropriate affect Objective Labs 04/15/25 03:07 04/15/25 03:07 Labs: Laboratory Results - last 24 hr 04/14/25 04/14/25 04/14/25 08:03 08:45 08:50 WBC RBC Hgb Hct MCV MCH MCHC RDW Std Deviation Plt Count Neut % (Auto) Lymph % (Auto) [place] % (Auto) Eos % (Auto) Baso % (Auto) Neut # (Auto) Lymph # (Auto) [place] # (Auto) Eos # (Auto) Baso # (Auto) Immature Gran # (Auto) Absolute Nucleated RBC Immature Gran % Nucleated RBC % PT 10.8 INR 1.0 APTT 30.9 Sodium Potassium Chloride Carbon Dioxide Anion Gap BUN Creatinine Estim Creat Clear Calc eGFR BUN/Creatinine Ratio Glucose Estimated Ave Glu mg/dL Hemoglobin A1c Calculated Osmolality Calcium Corrected Calcium Total Bilirubin AST ALT Alkaline Phosphatase Troponin I Total Protein Albumin Globulin Albumin/Globulin Ratio Triglycerides Cholesterol LDL Cholesterol, Calc HDL Cholesterol Cholesterol/HDL Ratio TSH Ur Collection Type Clean Catch Urine Color Yellow Urine Clarity Turbid A Urine pH 6.0 Ur Specific [place] 1.021 Urine Protein Trace Urine Glucose (UA) Negative Urine Ketones Negative Urine Blood Negative Urine Nitrite Negative Urine Bilirubin Negative Urine Urobilinogen (Auto) Negative Ur Leukocyte Esterase Positive Urine RBC 1 Urine WBC 1 Ur Squamous Epith Cells 20 H Urine Bacteria None Urine Sperm Present A Ur Culture Indicated? Not Indicated Urine HCG, Qual Negative Influenza A (Rapid) Negative Influenza B (Rapid) Negative 04/14/25 04/14/25 04/14/25 11:59 17:55 20:00 WBC RBC Hgb Hct MCV MCH MCHC RDW Std Deviation Plt Count Neut % (Auto) Lymph % (Auto) [place] % (Auto) Eos % (Auto) Baso % (Auto) Neut # (Auto) Lymph # (Auto) [place] # (Auto) Eos # (Auto) Baso # (Auto) Immature Gran # (Auto) Absolute Nucleated RBC Immature Gran % Nucleated RBC % PT INR APTT 40.8 H Sodium Potassium Chloride Carbon Dioxide Anion Gap BUN Creatinine Estim Creat Clear Calc eGFR BUN/Creatinine Ratio Glucose Estimated Ave Glu mg/dL Hemoglobin A1c Calculated Osmolality Calcium Corrected Calcium Total Bilirubin AST ALT Alkaline Phosphatase Troponin I 1.780 H* D 22.758 H* D Total Protein Albumin Globulin Albumin/Globulin Ratio Triglycerides Cholesterol LDL Cholesterol, Calc HDL Cholesterol Cholesterol/HDL Ratio TSH Ur Collection Type Urine Color Urine Clarity Urine pH Ur Specific [place] Urine Protein Urine Glucose (UA) Urine Ketones Urine Blood Urine Nitrite Urine Bilirubin Urine Urobilinogen (Auto) Ur Leukocyte Esterase Urine RBC Urine WBC Ur Squamous Epith Cells Urine Bacteria Urine Sperm Ur Culture Indicated? Urine HCG, Qual Influenza A (Rapid) Influenza B (Rapid) 04/15/25 04/15/25 00:35 03:07 WBC 7.0 RBC 4.28 Hgb 13.2 D Hct 38.4 MCV 90 MCH 30.8 MCHC 34.4 RDW Std Deviation 47.0 H Plt Count 384 D Neut % (Auto) 59 Lymph % (Auto) 29 [place] % (Auto) 8 Eos % (Auto) 3 Baso % (Auto) 0 Neut # (Auto) 4.2 Lymph # (Auto) 2.1 [place] # (Auto) 0.6 Eos # (Auto) 0.2 Baso # (Auto) 0.0 Immature Gran # (Auto) 0.03 H Absolute Nucleated RBC 0.00 Immature Gran % 0 Nucleated RBC % 0 PT INR APTT 62.9 H D Sodium 143 Potassium 3.7 D Chloride 107 Carbon Dioxide 27.2 Anion Gap 9 BUN 5 L Creatinine 0.6 Estim Creat Clear Calc 111.5 eGFR > 60 BUN/Creatinine Ratio 8 L Glucose [address] Glu mg/dL 117 Hemoglobin A1c 5.7 Calculated Osmolality 282 Calcium 9.1 Corrected Calcium 9.2 Total Bilirubin 0.4 AST 84 H ALT 35 Alkaline Phosphatase 71 D Troponin I 13.959 H* D 10.144 H* D Total Protein 6.2 Albumin 3.9 D Globulin 2.3 Albumin/Globulin Ratio 1.7 Triglycerides 150 Cholesterol 218 H LDL Cholesterol, Calc 154 H HDL Cholesterol 34 L Cholesterol/HDL Ratio 6.4 H TSH 0.38 L Ur Collection Type Urine Color Urine Clarity Urine pH Ur Specific [place] Urine Protein Urine Glucose (UA) Urine Ketones Urine Blood Urine Nitrite Urine Bilirubin Urine Urobilinogen (Auto) Ur Leukocyte Esterase Urine RBC Urine WBC Ur Squamous Epith Cells Urine Bacteria Urine Sperm Ur Culture Indicated? Urine HCG, Qual Influenza A (Rapid) Influenza B (Rapid) Quality Measures Quality Measures none Assessment & Plan Assessment Current Active Medications: Generic Name Dose Route Start Last Admin Trade Name Freq PRN Reason Stop Dose Admin Acetaminophen 650 mg 04/14/25 14:30 04/14/25 19:04 Acetaminophen 325 Mg Tablet PO 05/14/25 14:29 650 mg Q6H PRN Administration Fever >100.4 or Pain 1-4 Aspirin 81 mg 04/15/25 09:00 04/15/25 09:30 Aspirin Ec 81 Mg Tabec PO 05/15/25 08:59 81 mg QDAY KATRIN Administration Atropine Sulfate 0.5 mg 04/14/25 15:39 Atropine Sulf Inj 1 Mg/Ml Vial IVP Q3M PRN BRADYCARDIA <30 Bismuth Subsalicylate 17.4 ml 04/14/25 15:15 04/15/25 06:15 Bismuth Subsalicyl 1 Ml PO 05/14/25 15:14 Not Given QID KATRIN Clopidogrel Bisulfate 75 mg 04/15/25 09:00 04/15/25 09:30 Clopidogrel Bisulfate 75 Mg Tablet PO 05/15/25 08:59 75 mg QDAY KATRIN Administration Heparin Sodium/Dextrose 25,000 unit in 250 mls @ 8.995 mls/hr 04/14/25 12:45 04/15/25 04:15 Heparin In D5w Ivpb IV 04/28/25 12:44 12.53 units/kg/hr .Q24H KATRIN 9.392 mls/hr Protocol Titration 12 UNITS/KG/HR Metronidazole 500 mg 04/14/25 17:00 04/15/25 05:31 Metronidazole 250 Mg Tablet PO 04/21/25 16:59 500 mg QID KATRIN Administration Ondansetron HCl 4 mg 04/14/25 14:30 Ondansetron Inj 2 Mg/Ml Inj 2 Ml IVP 05/14/25 14:29 Q6H PRN NAUSEA OR VOMITING Protocol Pantoprazole Sodium 40 mg 04/14/25 21:00 04/15/25 09:30 Pantoprazole Inj 40 Mg Vial IVP 05/14/25 20:59 40 mg BID KATRIN Administration Tetracycline HCl 500 mg 04/14/25 17:00 04/15/25 05:31 Tetracycline 250 Mg Capsule PO 04/21/25 16:59 500 mg QID KATRIN Administration Plan Patient is a Albanian-speaking 54-year-old female with a PMH of hyperlipidemia and H. pylori infection diagnosed last week by urea breath test who presented on 04/14 with a chief complaint of substernal chest pain for 3 hours prior to hospitalization. Patient was admitted for the work-up and management of NSTEMI. Cardiology (Dr. Franco) was consulted and is closely following the case. #NSTEMI #ACS #CAD #Asymptomatic bradycardia On 04/14 admission: troponin 1.780 (at 11:59) & EKG (at :) showed sinus bradycardia of heart rate [address] elevations Patient complained of substernal chest pain beginning at 05:00 of 04/14 that was characterized as burning in nature and radiated to the back and arm with associated hand numbness Cardiology (Dr. Franco) was consulted after patient started becoming hypotensive with SBP in the 90s and DBP in the 60s along with bradycardia of HR in the high 40s At the time, cardiology recommended continuing the patient on aspirin, Plavix, heparin, and ordering an echocardiogram with the possibility of patient requiring heart catheterization Same-day repeat EKG at 15:35 showed ectopic atrial bradycardia of HR 42 with low QRS voltage in precordial leads and new lateral myocardial infarction of indeterminate age Same-day repeat troponin at 17:55 showed a dramatic increase in troponin from 1.780 to 22.758 EDDIE ACS Score: 85 points (2% probability of from admission to 6 months, calculated at 20:35) ROE Score for UA/NSTEMI: 2 points (8% all-cause mortality risk, calculated at 20:48) 04/15, troponin 22.758->10.144 Dx: -04/14 echocardiogram ordered, showed ___ -Lipid panel ordered, showed cholesterol 218, LDL 154. -Hemoglobin A1c ordered, showed 5.7 -TSH level ordered, was WNL @ 0.71 Rx: -IV heparin gtt @ 12 units/kg/hr -PO aspirin 81 mg qD -PO Plavix 75 mg qD -IV atropine 0.5 mg q3MIN prn for bradycardic HR<30 -Pain management: PO acetaminophen 650 mg q6HR prn for pain 1-4 -Trend troponin q6HR -Consulted cardiology (Dr. Franco), recommended continued medical management for now instead of transfer to tertiary care center for cardiac catheterization (no cardiac catheterization lab coverage for [facility] on weekends) #Intractable nausea and vomiting, i/s/o NSTEMI and recent diagnosis of H. pylori infection, resolved Per daughter, patient vomited twice before arriving in the ED During this contract technical writer's patient interview, patient was noted to have some episodes of retching but production of actual vomitus was not witnessed Of note, the above symptoms occur in the setting of active NSTEMI and a diagnosis of H. pylori infection 1 week ago by urea breath test No signs of QTc prolongation on recent EKGs Rx: -IV Zofran 4 mg every 6 hours as needed for nausea -Treat underlying causes (NSTEMI and H. pylori infection) #H. pylori infection Per daughter, patient was recently diagnosed with H.pylori infection 1 week ago by urea breath test Patient endorses symptoms of burning chest pain and vomiting Rx: -IV Protonix 40 mg twice daily [04/14--] -PO bismuth subsalicylate 17.4 mL 4 times daily [04/14--] -PO tetracycline 500 mg 4 times daily [04/14--] -PO Flagyl 500 mg 4 times daily [04/14--] #MASLD #Incidental liver lesions Dx: -04/14 gallbladder ultrasound showed multiple liver lesions (also seen on 04/14 precontrast abdominal MRI images) and fatty infiltration throughout the liver Rx: -Outpatient follow-up Hospital Management: Disposition: Admitted to telemetry for workup and management of NSTEMI Diet: Cardiac GI Prophylaxis: IV Protonix 40 mg twice daily Bowel Prophylaxis: PO Senna 1 tab qD DVT Prophylaxis: IV heparin drip CODE STATUS: Full Code I have examined the patient and conferred with my attending, Dr. Cortes, and my senior resident, Dr. Verde, regarding them. Wilman Malloy DO PGY-1 Internal Medicine Attending Provider Attestation/Addendum I have seen and examined the patient. I was physically present for the puente portions of the services provided including history, physical exam, diagnosis, treatment plans and orders. I agree with assessment and plan of care as documented by residents. Even though this this note was carefully revised there may still be minor errors in fire engine operator due to voice recognition software. Melina Cortes MD
[2025-04-15 10:32] LABS: Partial Thromboplastin Time 55.8 Seconds (22.0-36.0)
[2025-04-15 12:00] VITALS: BP 109/69; PULSE 55; PULSE 63; RESP 21; TEMP 36.9; O2SAT 97
[2025-04-15] MEDS: BISMUTH SUBSALICYL 1 ML 17.4 ML PO ×3 (13:03→20:47)
--- NOTE | 2025-04-15 13:20 | PC.SS ---
Patient is a 54 year old female presenting to the hospital for nstemi. MECHANICAL ESTIMATOR met with patient, patient daughter and son at bedside. MECHANICAL ESTIMATOR introduced self, role, and reason for visit. Patient stated that in case she is unable to make medical decisions on her own she would like her daughter Merary to make them. ?Patient stated that she lives at home with her family, does not have home DME, is unemployed, PCP is Dr. Andrew at [facility] and her last appointment was in March 2025. Her pharmacy of choice is [facility]. Patient stated that once medically clear she will be going home and her family will provide transportation. D/C: Home Decision maker: Merary Lundy PH: [phone] PCP: Dr. Andrew [facility]
[2025-04-15 16:00] VITALS: BP 121/75; PULSE 56; PULSE 61; RESP 15; TEMP 37; O2SAT 98
[2025-04-15] MEDS: Heparin/D5w 25K 250 ML Ivpb 25,000 UNIT/250 ML BAG 9.392 UNIT IV (17:01)
[2025-04-15 17:35] LABS: Partial Thromboplastin Time 59.2 Seconds (22.0-36.0)
[2025-04-15 20:00] VITALS: BP 128/80; PULSE 54; PULSE 56; RESP 16; TEMP 36.7; O2SAT 98
[2025-04-15] MEDS: ACETAMINOPHEN 325 MG TABLET 650 MG PO (20:46)
[2025-04-16] VITALS: BP 116/72; PULSE 44; PULSE 53; RESP 17; TEMP 36.7; O2SAT 99
[2025-04-16 01:42] LABS: Partial Thromboplastin Time 92.5 Seconds (22.0-36.0)
[2025-04-16 04:00] VITALS: BP 113/72; PULSE 43; PULSE 53; RESP 16; TEMP 36.1; O2SAT 98
[2025-04-16 06:00] VITALS: BMI 26.4
[2025-04-16] MEDS: BISMUTH SUBSALICYL 1 ML 17.4 ML PO ×4 (06:17→20:57)
[2025-04-16 06:23] LABS: Basophils # (Auto) 0.0 Thou/mm3 (0.0-0.2); Basophils % (Auto) 0 % (0-2.5); Eosinophils # (Auto) 0.3 Thou/mm3 (0.0-0.5); Eosinophils % (Auto) 4 % (0-10); Hematocrit 42.3 % (36.0-46.0); Hemoglobin 14.4 g/dL (12.0-16.0); Immature Granulocytes Auto 0.02 Thou/mm3 (0.00-0.00); Lymphocytes # (Auto) 2.0 Thou/mm3 (1.0-4.8); Lymphocytes % (Auto) 30 % (10-50); Mean Corpuscular HGB Conc 34.0 g/dl (31.0-37.0); Mean Corpuscular Hemoglobin 30.9 pg (25.0-35.0); Mean Corpuscular Volume 91 fL (80-100); Monocytes # (Auto) 0.5 Thou/mm3 (0.0-0.8); Monocytes % (Auto) 8 % (0-12); Neutrophils # (Auto) 3.9 Thou/mm3 (1.8-7.7); Neutrophils % (Auto) 58 % (37-80); Nucleated Red Blood Cell # 0.00 Thou/mm3 (0.00-0.00); Nucleated Red Blood Cell % 0 /100 WBC (0); Platelet Count 345 Thou/mm3 (140-440); RDW Standard Deviation 47.7 fL (36.4-46.3); Red Blood Count 4.66 Miln/mm3 (4.00-5.20); White Blood Count 6.7 Thou/mm3 (3.6-11.0)
[2025-04-16 06:50] LABS: Alanine Aminotransferase 40 U/L (10-49); Albumin, Serum 4.1 gm/dL (3.5-5.0); Albumin/Globulin Ratio 1.5 (1.2-2.2); Alkaline Phosphatase 71 U/L (46-116); Anion Gap 11 (7-16); Aspartate Amino Transferase 66 U/L (0-34); BUN/Creatinine Ratio 10 Ratio (12-20); Bilirubin,Total 0.3 mg/dL (0.3-1.2); Blood Urea Nitrogen 7 mg/dL (9-23); Calcium 9.3 mg/dL (8.3-10.6); Calcium (Corrected) 9.3 mg/dL (8.5-10.1); Carbon Dioxide 26.7 mMol/L (20.0-31.0); Chloride 104 mMol/L (98-107); Creatinine (Component) 0.7 mg/dL (0.6-1.3); Estimated Creatinine Clearance 94.8 mL/min (>60); Globulin 2.7 gm/dL (2.3-3.5); Glucose 97 mg/dL (74-106); Osmolality,Calculated 281 (275-295); Potassium 4.5 mMol/L (3.4-5.1); Sodium 142 mMol/L (136-145); Total Protein 6.8 gm/dL (5.7-8.2); eGFR > 60 See Note
[2025-04-16 08:00] VITALS: BP 126/76; PULSE 44; PULSE 45; RESP 13; TEMP 36.1; O2SAT 97
[2025-04-16 08:26] LABS: Partial Thromboplastin Time 85.4 Seconds (22.0-36.0)
[2025-04-16 12:00] VITALS: BP 122/78; PULSE 54; PULSE 61; RESP 21; TEMP 36.9; O2SAT 98
--- NOTE | 2025-04-16 13:52 | ESPR_ITS ---
<Statement entered by Neil Narvaez MD - 04/16/25 16:04> Patient seen and examined at bedside. No acute overnight events. Physical examination remains unremarkable. Patient denies any other complaints. Labs did not show any significant abnormality. Still continued heparin drip. Patient was supposed to get cardiac cath tomorrow by Dr. Durbin I have personally seen and examined the patient, agree with residents assessment and plan Patient plan of care was discussed with the attending physician, Dr. Sophia Narvaez, PGY2 Documentation for date of: 04/16/25 Subjective Subjective Interval history: No overnight events. Patient was examined at bedside; she appears A&Ox3 and in NAD. Today, she complains of continued back and chest pain but reports that they have improved from yesterday. Vitals/labs today significant for HR 53 but otherwise WNL. Physical exam notable for continued bradycardia but was otherwise benign and unremarkable. Cardiology (Dr. Franco) is onboard and will be performing cardiac catheterization on Thursday, 04/17. In the meantime, patient will continue being treated with IV heparin gtt, PO aspirin, and PO Plavix for medical management of her NSTEMI. She will also continue receiving quadruple therapy consisting of IV Protonix, PO bismuth subsalicylate, PO tetracycline, and PO Flagyl for her H. pylori infection. Exam Vital Signs Temp Pulse Resp BP Pulse Ox O2 Del Method O2 Flow Rate 98.5 F 54 L 21 H 122/78 98 Room Air 2 04/16/25 12:00 04/16/25 12:00 04/16/25 12:00 04/16/25 12:00 04/16/25 12:00 04/16/25 12:00 04/16/25 04:00 Narrative Exam General: A/O x3, in NAD. Skin: Warm, dry, intact, no obvious rash. Head: Normocephalic, atraumatic. Eyes: PERRL, EOMI. Anicteric, vision grossly intact. Ears: No ear pain, no ear discharge, Hearing grossly intact. Nose: No nasal discharge. Mouth/Throat: Oral mucosa moist. No obvious lesions in oropharynx. Cardiovascular: Soft heartbeats. Bradycardic rate and normal rhythm, no murmur, no JVD or carotid bruits. +S1/S2. Respiratory: Bilateral lungs are clear to auscultation, respirations unlabored, no crackles, no wheezing. No accessory muscle use. Gastrointestinal: Soft, nontender, non-distended, no palpable masses. No guarding or rebound tenderness. Peristalsis present. Extremities: Symmetrical, no significant deformities. No edema, no cyanosis, no clubbing. 2+ radial pulse bilaterally, 2+ posterior tibial pulse bilaterally. Neuro: No focal deficits observed. Conversant, moving all extremities. No overt cerebellar signs/incoordination. Psychiatric: Cooperative, appropriate affect Objective Labs 04/16/25 05:33 04/16/25 05:33 Labs: Laboratory Results - last 24 hr 04/15/25 04/16/25 04/16/25 16:36 00:46 05:33 WBC 6.7 RBC 4.66 Hgb 14.4 Hct 42.3 MCV 91 MCH 30.9 MCHC 34.0 RDW Std Deviation 47.7 H Plt Count 345 D Neut % (Auto) 58 Lymph % (Auto) 30 [place] % (Auto) 8 Eos % (Auto) 4 Baso % (Auto) 0 Neut # (Auto) 3.9 Lymph # (Auto) 2.0 [place] # (Auto) 0.5 Eos # (Auto) 0.3 Baso # (Auto) 0.0 Immature Gran # (Auto) 0.02 H Absolute Nucleated RBC 0.00 Immature Gran % 0 Nucleated RBC % 0 APTT 59.2 H 92.5 H D Sodium 142 Potassium 4.5 D Chloride 104 Carbon Dioxide 26.7 Anion Gap 11 BUN 7 L Creatinine 0.7 Estim Creat Clear Calc 94.8 eGFR > 60 BUN/Creatinine Ratio 10 L Glucose 97 Calculated Osmolality 281 Calcium 9.3 Corrected Calcium 9.3 Total Bilirubin 0.3 AST 66 H ALT 40 Alkaline Phosphatase 71 Total Protein 6.8 Albumin 4.1 Globulin 2.7 Albumin/Globulin Ratio 1.5 04/16/25 06:41 WBC RBC Hgb Hct MCV MCH MCHC RDW Std Deviation Plt Count Neut % (Auto) Lymph % (Auto) [place] % (Auto) Eos % (Auto) Baso % (Auto) Neut # (Auto) Lymph # (Auto) [place] # (Auto) Eos # (Auto) Baso # (Auto) Immature Gran # (Auto) Absolute Nucleated RBC Immature Gran % Nucleated RBC % APTT 85.4 H Sodium Potassium Chloride Carbon Dioxide Anion Gap BUN Creatinine Estim Creat Clear Calc eGFR BUN/Creatinine Ratio Glucose Calculated Osmolality Calcium Corrected Calcium Total Bilirubin AST ALT Alkaline Phosphatase Total Protein Albumin Globulin Albumin/Globulin Ratio Quality Measures Quality Measures none Assessment & Plan Assessment Current Active Medications: Generic Name Dose Route Start Last Admin Trade Name Freq PRN Reason Stop Dose Admin Acetaminophen 650 mg 04/14/25 14:30 04/15/25 20:46 Acetaminophen 325 Mg Tablet PO 05/14/25 14:29 650 mg Q6H PRN Administration Fever >100.4 or Pain 1-4 Aspirin 81 mg 04/15/25 09:00 04/16/25 08:39 Aspirin Ec 81 Mg Tabec PO 05/15/25 08:59 81 mg QDAY KATRIN Administration Atropine Sulfate 0.5 mg 04/14/25 15:39 Atropine Sulf Inj 1 Mg/Ml Vial IVP Q3M PRN BRADYCARDIA <30 Bismuth Subsalicylate 17.4 ml 04/14/25 15:15 04/16/25 13:43 Bismuth Subsalicyl 1 Ml PO 05/14/25 15:14 17.4 ml QID KATRIN Administration Clopidogrel Bisulfate 75 mg 04/15/25 09:00 04/16/25 08:40 Clopidogrel Bisulfate 75 Mg Tablet PO 05/15/25 08:59 75 mg QDAY KATRIN Administration Heparin Sodium/Dextrose 25,000 unit in 250 mls @ 8.995 mls/hr 04/14/25 12:45 04/16/25 08:52 Heparin In D5w Ivpb IV 04/28/25 12:44 8.53 units/kg/hr .Q24H KATRIN 6.394 mls/hr Protocol Titration 12 UNITS/KG/HR Metronidazole 500 mg 04/14/25 17:00 04/16/25 13:43 Metronidazole 250 Mg Tablet PO 04/21/25 16:59 500 mg QID KATRIN Administration Ondansetron HCl 4 mg 04/14/25 14:30 Ondansetron Inj 2 Mg/Ml Inj 2 Ml IVP 05/14/25 14:29 Q6H PRN NAUSEA OR VOMITING Protocol Pantoprazole Sodium 40 mg 04/14/25 21:00 04/16/25 08:40 Pantoprazole Inj 40 Mg Vial IVP 05/14/25 20:59 40 mg BID KATRIN Administration Sennosides 1 tab 04/16/25 09:00 04/16/25 08:40 Senna Tablet PO 05/16/25 08:59 1 tab QDAY [facility] Administration Protocol Tetracycline HCl 500 mg 04/14/25 17:00 04/16/25 13:44 Tetracycline 250 Mg Capsule PO 04/21/25 16:59 500 mg QID [facility] Administration Plan Patient is a Icelandic-speaking 54-year-old female with a PMH of hyperlipidemia and H. pylori infection diagnosed last week by urea breath test who presented on 04/14 with a chief complaint of substernal chest pain for 3 hours prior to hospitalization. Patient was admitted for the work-up and management of NSTEMI. Cardiology (Dr. Franco) was consulted and is closely following the case. #NSTEMI #ACS #CAD #Asymptomatic bradycardia On 04/14 admission: troponin 1.780 (at 11:59) & EKG (at :) showed sinus bradycardia of heart rate [address] elevations Patient complained of substernal chest pain beginning at 05:00 of 04/14 that was characterized as burning in nature and radiated to the back and arm with associated hand numbness Cardiology (Dr. Franco) was consulted after patient started becoming hypotensive with SBP in the 90s and DBP in the 60s along with bradycardia of HR in the high 40s At the time, cardiology recommended continuing the patient on aspirin, Plavix, heparin, and ordering an echocardiogram with the possibility of patient requiring heart catheterization Same-day repeat EKG at 15:35 showed ectopic atrial bradycardia of HR 42 with low QRS voltage in precordial leads and new lateral myocardial infarction of indeterminate age Same-day repeat troponin at 17:55 showed a dramatic increase in troponin from 1.780 to 22.758 EDDIE ACS Score: 85 points (2% probability of from admission to 6 months, calculated at 20:35) ROE Score for UA/NSTEMI: 2 points (8% all-cause mortality risk, calculated at 20:48) 04/15, troponin 22.758->10.144 Dx: -04/14 echocardiogram ordered, unremarkable findings -Lipid panel ordered, showed cholesterol 218, LDL 154. -Hemoglobin A1c ordered, showed 5.7 -TSH level ordered, was WNL @ 0.71 Rx: -Cardiac catheterization on Thursday, 11/3 -IV heparin gtt @ 12 units/kg/hr -PO aspirin 81 mg qD -PO Plavix 75 mg qD -IV atropine 0.5 mg q3MIN prn for bradycardic HR<30 -Pain management: PO acetaminophen 650 mg q6HR prn for pain 1-4 -Trend troponin q6HR -Consulted cardiology (Dr. Franco), recommended continued medical management for now instead of transfer to tertiary care center for cardiac catheterization (no cardiac catheterization lab coverage for [facility] on weekends) #Intractable nausea and vomiting, i/s/o NSTEMI and recent diagnosis of H. pylori infection, resolved Per daughter, patient vomited twice before arriving in the ED During this continuity writer's patient interview, patient was noted to have some episodes of retching but production of actual vomitus was not witnessed Of note, the above symptoms occur in the setting of active NSTEMI and a diagnosis of H. pylori infection 1 week ago by urea breath test No signs of QTc prolongation on recent EKGs Rx: -IV Zofran 4 mg every 6 hours as needed for nausea -Treat underlying causes (NSTEMI and H. pylori infection) #H. pylori infection Per daughter, patient was recently diagnosed with H.pylori infection 1 week ago by urea breath test Patient endorses symptoms of burning chest pain and vomiting Rx: -IV Protonix 40 mg twice daily [04/14--] -PO bismuth subsalicylate 17.4 mL 4 times daily [04/14--] -PO tetracycline 500 mg 4 times daily [04/14--] -PO Flagyl 500 mg 4 times daily [04/14--] #MASLD #Incidental liver lesions Dx: -04/14 gallbladder ultrasound showed multiple liver lesions (also seen on 04/14 precontrast abdominal MRI images) and fatty infiltration throughout the liver Rx: -Outpatient follow-up Hospital Management: Disposition: Admitted to telemetry for workup and management of NSTEMI, pending cardiac catheterization on 04/17 Diet: Cardiac GI Prophylaxis: IV Protonix 40 mg twice daily Bowel Prophylaxis: PO Senna 1 tab qD DVT Prophylaxis: IV heparin drip CODE STATUS: Full Code I have examined the patient and conferred with my attending, Dr. Cortes, and my senior resident, Dr. Narvaez, regarding them. Wilman Malloy, PGY-1 Internal Medicine Attending Provider Attestation/Addendum I have seen and examined the patient. I was physically present for the puente portions of the services provided including history, physical exam, diagnosis, treatment plans and orders. I agree with assessment and plan of care as documented by residents. Patient seen and examined at bedside this morning. Appears comfortable and denies any new complaints. Chest pain has resolved. Back pain has also been improving. Pulse noted to have improved to 50s from 40s yesterday. Rest of the lab results have been stable. Continues to be on heparin drip, aspirin and Plavix. Patient is planned for cardiac catheterization tomorrow with cardiology, appreciate recommendations. Continues to be on quadruple therapy for H. pylori infection. 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 Melina Cortes MD
--- NOTE | 2025-04-16 14:39 | PD.IMPROG ---
Documentation for date of: 04/16/25 Subjective Subjective Interval history: no chest pain non STEMI Exam Vital Signs Temp Pulse Resp BP Pulse Ox O2 Del Method O2 Flow Rate 98.5 F 54 L 21 H 122/78 98 Room Air 2 04/16/25 12:00 04/16/25 12:00 04/16/25 12:00 04/16/25 12:00 04/16/25 12:00 04/16/25 12:00 04/16/25 04:00 Routine HEENT Exam Head: Present normocephalic and atraumatic Eye: Present EOMI and PERRL ENT: Present mucous membranes moist Routine Neck Exam Neck: Present supple and trachea midline Routine Respiratory Exam Respiratory: Present chest non-tender, lungs clear, normal breath sounds and no resp distress Routine Cardiovascular Exam Cardiovascular: Present RRR Routine Abdominal Exam Abdominal: Present soft and normoactive bowel sounds Routine Extremities Exam Extremities: Present full ROM Routine Skin Exam Skin: Present intact, dry and warm Routine Neurological Exam Neurological: Present alert, oriented X3 and CN II-XII intact Routine Psychiatric Exam Psychiatric: Present normal affect and normal thought process Objective Labs 04/16/25 05:33 04/16/25 05:33 Labs: Laboratory Results - last 24 hr 04/15/25 04/16/25 04/16/25 16:36 00:46 05:33 WBC 6.7 RBC 4.66 Hgb 14.4 Hct 42.3 MCV 91 MCH 30.9 MCHC 34.0 RDW Std Deviation 47.7 H Plt Count 345 D Neut % (Auto) 58 Lymph % (Auto) 30 [place] % (Auto) 8 Eos % (Auto) 4 Baso % (Auto) 0 Neut # (Auto) 3.9 Lymph # (Auto) 2.0 [place] # (Auto) 0.5 Eos # (Auto) 0.3 Baso # (Auto) 0.0 Immature Gran # (Auto) 0.02 H Absolute Nucleated RBC 0.00 Immature Gran % 0 Nucleated RBC % 0 APTT 59.2 H 92.5 H D Sodium 142 Potassium 4.5 D Chloride 104 Carbon Dioxide 26.7 Anion Gap 11 BUN 7 L Creatinine 0.7 Estim Creat Clear Calc 94.8 eGFR > 60 BUN/Creatinine Ratio 10 L Glucose 97 Calculated Osmolality 281 Calcium 9.3 Corrected Calcium 9.3 Total Bilirubin 0.3 AST 66 H ALT 40 Alkaline Phosphatase 71 Total Protein 6.8 Albumin 4.1 Globulin 2.7 Albumin/Globulin Ratio 1.5 04/16/25 06:41 WBC RBC Hgb Hct MCV MCH MCHC RDW Std Deviation Plt Count Neut % (Auto) Lymph % (Auto) [place] % (Auto) Eos % (Auto) Baso % (Auto) Neut # (Auto) Lymph # (Auto) [place] # (Auto) Eos # (Auto) Baso # (Auto) Immature Gran # (Auto) Absolute Nucleated RBC Immature Gran % Nucleated RBC % APTT 85.4 H Sodium Potassium Chloride Carbon Dioxide Anion Gap BUN Creatinine Estim Creat Clear Calc eGFR BUN/Creatinine Ratio Glucose Calculated Osmolality Calcium Corrected Calcium Total Bilirubin AST ALT Alkaline Phosphatase Total Protein Albumin Globulin Albumin/Globulin Ratio Assessment & Plan A&P Narrative continue asa/ plavix/ heparin echo will f/u heart cath tomorrow Time Spent With Patient Time: Total time spent is greater than 50% in coordination of care (as documented) at patient's floor/unit and/or counseling patient:
[2025-04-16 15:41] LABS: Partial Thromboplastin Time 41.8 Seconds (22.0-36.0)
[2025-04-16 16:00] VITALS: BP 122/87; PULSE 51; PULSE 58; RESP 15; TEMP 36.9; O2SAT 97
[2025-04-16] MEDS: LIDOCAINE 5% 1 PATCH TOP (17:42)
[2025-04-16] MEDS: HEPARIN SOD INJ 5000 UNIT/ML VIAL 2000 UNIT IVP (17:43)
[2025-04-16] MEDS: ACETAMINOPHEN 325 MG TABLET 650 MG PO (17:49)
[2025-04-16 20:00] VITALS: BP 124/77; PULSE 52; PULSE 58; RESP 16; TEMP 36.3; O2SAT 97
[2025-04-16] MEDS: MELATONIN 3 MG TABLET 6 MG PO (20:54)
[2025-04-16] MEDS: Heparin/D5w 25K 250 ML Ivpb 25,000 UNIT/250 ML BAG 7.893 UNIT IV (21:02)
[2025-04-17] VITALS (18 sets, daily range): BP systolic 104–148; BP diastolic 68–85; PULSE 46–69; RESP 12–20; TEMP 36.2–37; O2SAT 93–98; BMI 26.6; BMI 26.5
[2025-04-17 00:56] LABS: Partial Thromboplastin Time 68.5 Seconds (22.0-36.0)
[2025-04-17 06:17] LABS: Basophils # (Auto) 0.1 Thou/mm3 (0.0-0.2); Basophils % (Auto) 1 % (0-2.5); Eosinophils # (Auto) 0.3 Thou/mm3 (0.0-0.5); Eosinophils % (Auto) 4 % (0-10); Hematocrit 45.3 % (36.0-46.0); Hemoglobin 15.6 g/dL (12.0-16.0); Immature Granulocytes Auto 0.03 Thou/mm3 (0.00-0.00); Lymphocytes # (Auto) 2.2 Thou/mm3 (1.0-4.8); Lymphocytes % (Auto) 31 % (10-50); Mean Corpuscular HGB Conc 34.4 g/dl (31.0-37.0); Mean Corpuscular Hemoglobin 30.9 pg (25.0-35.0); Mean Corpuscular Volume 90 fL (80-100); Monocytes # (Auto) 0.6 Thou/mm3 (0.0-0.8); Monocytes % (Auto) 9 % (0-12); Neutrophils # (Auto) 3.9 Thou/mm3 (1.8-7.7); Neutrophils % (Auto) 55 % (37-80); Nucleated Red Blood Cell # 0.00 Thou/mm3 (0.00-0.00); Nucleated Red Blood Cell % 0 /100 WBC (0); Platelet Count 421 Thou/mm3 (140-440); RDW Standard Deviation 46.4 fL (36.4-46.3); Red Blood Count 5.05 Miln/mm3 (4.00-5.20); White Blood Count 7.1 Thou/mm3 (3.6-11.0)
[2025-04-17 06:27] LABS: Alanine Aminotransferase 37 U/L (10-49); Albumin, Serum 4.5 gm/dL (3.5-5.0); Albumin/Globulin Ratio 1.7 (1.2-2.2); Alkaline Phosphatase 78 U/L (46-116); Anion Gap 9 (7-16); Aspartate Amino Transferase 41 U/L (0-34); BUN/Creatinine Ratio 14 Ratio (12-20); Bilirubin,Total 0.4 mg/dL (0.3-1.2); Blood Urea Nitrogen 11 mg/dL (9-23); Calcium 9.7 mg/dL (8.3-10.6); Calcium (Corrected) 9.7 mg/dL (8.5-10.1); Carbon Dioxide 28.9 mMol/L (20.0-31.0); Chloride 104 mMol/L (98-107); Creatinine (Component) 0.8 mg/dL (0.6-1.3); Estimated Creatinine Clearance 83.1 mL/min (>60); Globulin 2.7 gm/dL (2.3-3.5); Glucose 108 mg/dL (74-106); Osmolality,Calculated 283 (275-295); Potassium 4.0 mMol/L (3.4-5.1); Sodium 142 mMol/L (136-145); Total Protein 7.2 gm/dL (5.7-8.2); eGFR > 60 See Note
[2025-04-17 07:07] LABS: Partial Thromboplastin Time 69.2 Seconds (22.0-36.0)
[2025-04-17 08:52] LABS: INR 1.1 (0.9-1.3); Prothrombin Time 11.6 Seconds (9.0-12.2)
--- NOTE | 2025-04-17 10:59 | ESPR_ITS ---
<Statement entered by Kiara Verde MD - 04/18/25 15:32> Patient was seen and examined by me personally. I have directly supervised and reviewed documentation by the team resident and agree with its findings with any exceptions or additional findings as below. Plan of care was discussed with the attending, Dr. Cortes. Today patient went for cardiac catheterization which showed no significant coronary artery disease. Left ventricular EF was also normal at 50 to 55%. Patient and family was updated and reassured. Aspirin was stopped per Cardio. Patient will be monitored overnight and discharged in the morning. Kiara Verde, PGY-3 Documentation for date of: 04/17/25 Subjective Subjective Interval history: Overnight, patient's quadruple therapy for H. pylori infection was held in anticipation of patient's cardiac catheterization. Patient was examined at bedside; they appear A&Ox3 and in NAD. Vitals/labs and physical exam today were WNL and unremarkable. Patient is scheduled to undergo cardiac catheterization today. Exam Vital Signs Temp Pulse Resp BP Pulse Ox O2 Del Method O2 Flow Rate 97.9 F 49 L 15 124/77 97 Nasal Cannula 2 04/17/25 08:00 04/17/25 08:00 04/17/25 08:00 04/17/25 08:00 04/17/25 08:00 04/17/25 08:00 04/17/25 08:00 Narrative Exam General: A/O x3, in NAD. Skin: Warm, dry, intact, no obvious rash. Head: Normocephalic, atraumatic. Eyes: PERRL, EOMI. Anicteric, vision grossly intact. Ears: No ear pain, no ear discharge, Hearing grossly intact. Nose: No nasal discharge. Mouth/Throat: Oral mucosa moist. No obvious lesions in oropharynx. Cardiovascular: Soft heartbeats. Bradycardic rate and normal rhythm, no murmur, no JVD or carotid bruits. +S1/S2. Respiratory: Bilateral lungs are clear to auscultation, respirations unlabored, no crackles, no wheezing. No accessory muscle use. Gastrointestinal: Soft, nontender, non-distended, no palpable masses. No guarding or rebound tenderness. Peristalsis present. Extremities: Symmetrical, no significant deformities. No edema, no cyanosis, no clubbing. 2+ radial pulse bilaterally, 2+ posterior tibial pulse bilaterally. Neuro: No focal deficits observed. Conversant, moving all extremities. No overt cerebellar signs/incoordination. Psychiatric: Cooperative, appropriate affect Objective Labs 04/17/25 05:47 04/17/25 05:47 Labs: Laboratory Results - last 24 hr 04/16/25 04/16/25 04/17/25 15:08 23:47 05:47 WBC 7.1 RBC 5.05 Hgb 15.6 Hct 45.3 MCV 90 MCH 30.9 MCHC 34.4 RDW Std Deviation 46.4 H Plt Count 421 D Neut % (Auto) 55 Lymph % (Auto) 31 [place] % (Auto) 9 Eos % (Auto) 4 Baso % (Auto) 1 Neut # (Auto) 3.9 Lymph # (Auto) 2.2 [place] # (Auto) 0.6 Eos # (Auto) 0.3 Baso # (Auto) 0.1 Immature Gran # (Auto) 0.03 H Absolute Nucleated RBC 0.00 Immature Gran % 0 Nucleated RBC % 0 PT 11.6 INR 1.1 APTT 41.8 H D 68.5 H D 69.2 H Sodium 142 Potassium 4.0 D Chloride 104 Carbon Dioxide 28.9 Anion Gap 9 BUN 11 Creatinine 0.8 Estim Creat Clear Calc 83.1 eGFR > 60 BUN/Creatinine Ratio 14 Glucose 108 H Calculated Osmolality 283 Calcium 9.7 Corrected Calcium 9.7 Total Bilirubin 0.4 AST 41 H ALT 37 Alkaline Phosphatase 78 Total Protein 7.2 Albumin 4.5 Globulin 2.7 Albumin/Globulin Ratio 1.7 Quality Measures Quality Measures none Assessment & Plan Assessment Current Active Medications: Generic Name Dose Route Start Last Admin Trade Name Freq PRN Reason Stop Dose Admin Acetaminophen 650 mg 04/14/25 14:30 04/16/25 17:49 Acetaminophen 325 Mg Tablet PO 05/14/25 14:29 650 mg Q6H PRN Administration Fever >100.4 or Pain 1-4 Aspirin 81 mg 04/15/25 09:00 04/17/25 08:31 Aspirin Ec 81 Mg Tabec PO 05/15/25 08:59 Not Given QDAY KATRIN Atropine Sulfate 0.5 mg 04/14/25 15:39 Atropine Sulf Inj 1 Mg/Ml Vial IVP Q3M PRN BRADYCARDIA <30 Bismuth Subsalicylate 17.4 ml 04/14/25 15:15 04/17/25 05:55 Bismuth Subsalicyl 1 Ml PO 05/14/25 15:14 Not Given QID KATRIN Clopidogrel Bisulfate 75 mg 04/15/25 09:00 04/17/25 08:31 Clopidogrel Bisulfate 75 Mg Tablet PO 05/15/25 08:59 Not Given QDAY KATRIN Heparin Sodium/Dextrose 25,000 unit in 250 mls @ 8.995 mls/hr 04/14/25 12:45 04/17/25 07:15 Heparin In D5w Ivpb IV 04/28/25 12:44 10.53 units/kg/hr .Q24H KATRIN 7.893 mls/hr Protocol Titration 12 UNITS/KG/HR Melatonin 6 mg 04/16/25 21:00 04/16/25 20:54 Melatonin 3 Mg Tablet PO 05/16/25 20:59 6 mg HS KATRIN Administration Metronidazole 500 mg 04/14/25 17:00 04/17/25 05:55 Metronidazole 250 Mg Tablet PO 04/21/25 16:59 Not Given QID KATRIN Ondansetron HCl 4 mg 04/14/25 14:30 Ondansetron Inj 2 Mg/Ml Inj 2 Ml IVP 05/14/25 14:29 Q6H PRN NAUSEA OR VOMITING Protocol Pantoprazole Sodium 40 mg 04/17/25 21:00 Pantoprazole 40 Mg Tablet PO 05/17/25 20:59 BID [facility] Protocol Sennosides 1 tab 04/16/25 09:00 04/17/25 08:31 Senna Tablet PO 05/16/25 08:59 Not Given QDAY [facility] Protocol Tetracycline HCl 500 mg 04/14/25 17:00 04/17/25 05:56 Tetracycline 250 Mg Capsule PO 04/21/25 16:59 Not Given QID KATRIN Plan Patient is a Zambian-speaking 54-year-old female with a PMH of hyperlipidemia and H. pylori infection diagnosed last week by urea breath test who presented on 04/14 with a chief complaint of substernal chest pain for 3 hours prior to hospitalization. Patient was admitted for the work-up and management of NSTEMI. Cardiology (Dr. Franco) was consulted and is closely following the case. #NSTEMI #ACS #CAD #Asymptomatic bradycardia On 04/14 admission: troponin 1.780 (at 11:59) & EKG (at 07:31) showed sinus bradycardia of heart rate [address] elevations Patient complained of substernal chest pain beginning at 05:00 of 04/14 that was characterized as burning in nature and radiated to the back and arm with associated hand numbness Cardiology (Dr. Franco) was consulted after patient started becoming hypotensive with SBP in the 90s and DBP in the 60s along with bradycardia of HR in the high 40s At the time, cardiology recommended continuing the patient on aspirin, Plavix, heparin, and ordering an echocardiogram with the possibility of patient requiring heart catheterization Same-day repeat EKG at 15:35 showed ectopic atrial bradycardia of HR 42 with low QRS voltage in precordial leads and new lateral myocardial infarction of indeterminate age Same-day repeat troponin at 17:55 showed a dramatic increase in troponin from 1.780 to 22.758 EDDIE ACS Score: 85 points (2% probability of from admission to 6 months, calculated at 20:35) ROE Score for UA/NSTEMI: 2 points (8% all-cause mortality risk, calculated at 20:48) 04/15, troponin 22.758->10.144 Dx: -04/14 echocardiogram ordered, unremarkable findings -Lipid panel ordered, showed cholesterol 218, LDL 154. -Hemoglobin A1c ordered, showed 5.7 -TSH level ordered, was WNL @ 0.71 Rx: -Cardiac catheterization on Thursday, 04/17 -IV heparin gtt @ 12 units/kg/hr -PO aspirin 81 mg qD -PO Plavix 75 mg qD -IV atropine 0.5 mg q3MIN prn for bradycardic HR<30 -Pain management: PO acetaminophen 650 mg q6HR prn for pain 1-4 -Trend troponin q6HR -Consulted cardiology (Dr. Franco), recommended continued medical management for now instead of transfer to tertiary care center for cardiac catheterization (no cardiac catheterization lab coverage for [facility] on weekends) #Intractable nausea and vomiting, i/s/o NSTEMI and recent diagnosis of H. pylori infection, resolved Per daughter, patient vomited twice before arriving in the ED During this marketing writer's patient interview, patient was noted to have some episodes of retching but production of actual vomitus was not witnessed Of note, the above symptoms occur in the setting of active NSTEMI and a diagnosis of H. pylori infection 1 week ago by urea breath test No signs of QTc prolongation on recent EKGs Rx: -IV Zofran 4 mg every 6 hours as needed for nausea -Treat underlying causes (NSTEMI and H. pylori infection) #H. pylori infection Per daughter, patient was recently diagnosed with H.pylori infection 1 week ago by urea breath test Patient endorses symptoms of burning chest pain and vomiting Rx: -Holding all medications below until s/p cardiac catheterization -IV Protonix 40 mg twice daily [04/14--] -PO bismuth subsalicylate 17.4 mL 4 times daily [04/14--] -PO tetracycline 500 mg 4 times daily [04/14--] -PO Flagyl 500 mg 4 times daily [04/14--] #MASLD #Incidental liver lesions Dx: -04/14 gallbladder ultrasound showed multiple liver lesions (also seen on 04/14 precontrast abdominal MRI images) and fatty infiltration throughout the liver Rx: -Outpatient follow-up Hospital Management: Disposition: Admitted to telemetry for workup and management of NSTEMI, pending cardiac catheterization on 04/17 Diet: Cardiac GI Prophylaxis: IV Protonix 40 mg twice daily Bowel Prophylaxis: PO Senna 1 tab qD DVT Prophylaxis: IV heparin drip CODE STATUS: Full Code I have examined the patient and conferred with my attending, Dr. Cortes, and my senior resident, Dr. Verde, regarding them. Wilman Malloy DO PGY-1 Internal Medicine Attending Provider Attestation/Addendum I have seen and examined the patient. I was physically present for the puente portions of the services provided including history, physical exam, diagnosis, treatment plans and orders. I agree with assessment and plan of care as documented by residents. Patient seen and examined at bedside this morning appears comfortable and denies any new complaints. Vital signs have been stable, lab results are stable as well. Heart rate continues to be around low 50s. Back pain has been improving as well. Underwent cardiac catheterization with cardiology, was not found to have any significant coronary artery disease. Troponin leak possibly secondary to stress response versus Prinzmetal angina. Antiplatelets have been discontinued. We will continue with quadruple therapy. We will monitor her overnight for post cardiac catheterization complications. If remains stable, we will plan for discharge in next 24 to 48 hours. Even though this this note was carefully revised there may still be minor errors in political theory professor due to voice recognition software. Melina Cortes MD
[2025-04-17] MEDS: CLOPIDOGREL BISULFATE 75 MG TABLET PO (11:04)
[2025-04-17] MEDS: ASPIRIN EC 81 MG TABEC PO (11:04)
--- NOTE | 2025-04-17 12:07 | PC.SS ---
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
[2025-04-17] MEDS: SODIUM CHLORIDE 0.9% 1000 ML 1,000 ML 999 ML IV (14:00)
--- NOTE | 2025-04-17 14:11 | PD.CARDCATH ---
Cardiac Cath Procedure Procedure Narrative Date of the procedure 04/17/2025 Title of the procedure 1.left heart catheterization 2.left coronary angiogram 3.right coronary angiogram 4.left ventriculogram 5.conscious sedation 6.radiographic interpretation supervision 7.ultrasound guidance for right radial access Indication for the procedure 54-year-old female with admitted with recurrent chest pain Troponin was borderline positive Patient continues to have recurrent chest pain Cardiac catheter and cholangiogram recommended Procedure This was done in the cardiac lab under current electrocardiographic monitoring Intermittent blood pressure monitoring right radial access obtained using modified Seldinger technique and ultrasound guidance 6 [place]an sheath was placed TIG 4 catheter was used for selective engagement of the left coronary artery TIG 4 catheter was used for selective images right coronary artery TIG 4 catheter used for left ventriculogram Hemodynamics Overall left ventricular systolic function appears normal Approximate ejection fraction 50 to 55% End-diastolic pressure was 18 mmHg There is no gradient across the aortic valve Coronary anatomy 1.left main coronary artery appears normal 2.left anterior descending artery appears normal 3.diagonal appears to have luminal regularities 4.circumflex appears to be normal 5.obtuse marginal that shows luminal regularities 6.right coronary is a dominant vessel no significant lesion noted 7.PDA shows luminal regularities Conclusion No significant coronary artery disease Continue medical management
--- NOTE | 2025-04-17 15:52 | PC.WOUND ---
Per Dr. Narvaez and Dr. Malloy patient does not need 1415 PTT. Okay to cancel PTT order.
--- NOTE | 2025-04-17 16:14 | PC.NURSE ---
1409 patient is awake, alert, breathing unlabored, s/p LHC by Dr. Franco, Tr band to right wrist, no bleeding or hematoma noted, report received from Ellen HERNANDEZ. Patient to recover until TR band is removed, then transfer back to tele room. DC Heparin drip, Aspirin and plavix which are no longer needed since LHC negative. 1430 patient offered sandwich, only ate small bites with water 1457 2ml air removed since hemostasis time 1348 1550 TR band removed, no bleeding or hematoma noted, site covered with tegaderm and coban. 1609 Patient is awake, alert, breathing unlabored, dressing to right wrist dry with no bleeding or hematoma, report given to Maren HERNANDEZ, patient transferred back to tele room 278 with tele box accompanied by family member. Patient offered lunch tray and did not want to eat it, pt took lunch tray to room just in case she gets hungry.
[2025-04-17] MEDS: BISMUTH SUBSALICYL 1 ML 17.4 ML PO ×2 (16:37→20:34)
[2025-04-17] MEDS: ONDANSETRON INJ 2 MG/ML INJ 2 ML 4 MG IVP (16:38)
[2025-04-17] MEDS: ACETAMINOPHEN 325 MG TABLET 650 MG PO (16:46)
[2025-04-17] MEDS: PANTOPRAZOLE 40 MG TABLET PO (20:33)
[2025-04-17] MEDS: MELATONIN 3 MG TABLET 6 MG PO (20:34)
[2025-04-18] VITALS: BP 105/60; PULSE 46; PULSE 51; RESP 17; TEMP 36.3; O2SAT 95
[2025-04-18 04:00] VITALS: BP 104/60; PULSE 52; PULSE 53; RESP 17; TEMP 36.4; O2SAT 93
[2025-04-18 06:00] VITALS: BMI 25.7
[2025-04-18] MEDS: BISMUTH SUBSALICYL 1 ML 17.4 ML PO ×3 (06:22→16:49)
[2025-04-18 06:26] LABS: Basophils # (Auto) 0.0 Thou/mm3 (0.0-0.2); Basophils % (Auto) 1 % (0-2.5); Eosinophils # (Auto) 0.3 Thou/mm3 (0.0-0.5); Eosinophils % (Auto) 4 % (0-10); Hematocrit 43.1 % (36.0-46.0); Hemoglobin 14.3 g/dL (12.0-16.0); Immature Granulocytes Auto 0.02 Thou/mm3 (0.00-0.00); Lymphocytes # (Auto) 1.9 Thou/mm3 (1.0-4.8); Lymphocytes % (Auto) 26 % (10-50); Mean Corpuscular HGB Conc 33.2 g/dl (31.0-37.0); Mean Corpuscular Hemoglobin 29.8 pg (25.0-35.0); Mean Corpuscular Volume 90 fL (80-100); Monocytes # (Auto) 0.6 Thou/mm3 (0.0-0.8); Monocytes % (Auto) 8 % (0-12); Neutrophils # (Auto) 4.5 Thou/mm3 (1.8-7.7); Neutrophils % (Auto) 61 % (37-80); Nucleated Red Blood Cell # 0.00 Thou/mm3 (0.00-0.00); Nucleated Red Blood Cell % 0 /100 WBC (0); Platelet Count 404 Thou/mm3 (140-440); RDW Standard Deviation 46.6 fL (36.4-46.3); Red Blood Count 4.80 Miln/mm3 (4.00-5.20); White Blood Count 7.3 Thou/mm3 (3.6-11.0)
[2025-04-18 06:40] LABS: Alanine Aminotransferase 58 U/L (10-49); Albumin, Serum 4.1 gm/dL (3.5-5.0); Albumin/Globulin Ratio 1.6 (1.2-2.2); Alkaline Phosphatase 70 U/L (46-116); Anion Gap 11 (7-16); Aspartate Amino Transferase 67 U/L (0-34); BUN/Creatinine Ratio 10 Ratio (12-20); Bilirubin,Total 0.4 mg/dL (0.3-1.2); Blood Urea Nitrogen 7 mg/dL (9-23); Calcium 9.4 mg/dL (8.3-10.6); Calcium (Corrected) 9.4 mg/dL (8.5-10.1); Carbon Dioxide 27.5 mMol/L (20.0-31.0); Chloride 104 mMol/L (98-107); Creatinine (Component) 0.7 mg/dL (0.6-1.3); Estimated Creatinine Clearance 93.8 mL/min (>60); Globulin 2.5 gm/dL (2.3-3.5); Glucose 125 mg/dL (74-106); Osmolality,Calculated 282 (275-295); Potassium 3.5 mMol/L (3.4-5.1); Sodium 142 mMol/L (136-145); Total Protein 6.6 gm/dL (5.7-8.2); eGFR > 60 See Note
[2025-04-18 08:00] VITALS: BP 108/71; PULSE 52; PULSE 66; RESP 14; TEMP 36.8; O2SAT 96
[2025-04-18] MEDS: PANTOPRAZOLE 40 MG TABLET PO (09:10)
[2025-04-18 12:00] VITALS: BP 124/77; PULSE 52; PULSE 78; RESP 18; TEMP 36.9; O2SAT 93
--- NOTE | 2025-04-18 15:34 | ESDS_ITS ---
Planned Discharge Date 04/18/25 DS: Providers Provider Date of admission: 04/14/25 13:50 Primary care physician: Physician No Primary/Family Admitting Provider: Melina Cortes MD Attending Provider on Admission: Melina Cortes MD Consults: 04/14/25 12:46 Consult to Cardiology Stat Comment: Consulting Provider: Zohaib Franco Instructions: NSTEMI Attending Provider on DC: Neil Narvaez MD Discharging Provider: Neil Narvaez MD DS: Diagnosis Problem List Completed Was Problem List Reviewed/Reconciled?: Yes Hospital Course Hospital Course Hospital course: A 54-year-old female with significant past medical history of hyperlipidemia, recent diagnosis of H. pylori infection presented to the hospital with chief complaint of substernal chest pain for 3 hours on the day of hospitalization. Hospital course: Labs done at the time of admission significant for troponin 1.780 which later up trended to peak to 22.758. Patient is admitted in the hospital for EKG did not show any acute ST and T wave changes. Patient is admitted in the hospital for NSTEMI. Loading doses of aspirin, clopidogrel and statin were given. Patient was started on heparin drip. Continued treatment for H. pylori. Echo did not show any significant abnormality. Senior Principal Process Engineer, Dr. Franco was consulted and patient underwent cardiac cath which did not show any significant abnormality. Patient is discharged home with H. pylori treatment Discharge Recommendations: -Follow up with PCP within 1 week of discharge -Continue rest of medications as previously prescribed, including your medications for H. pylori infection for the next 9 days -The following medications have been sent to your pharmacy: ? bismuth subsalicylate 300 mg four times daily ? metronidazole 500 mg four times daily ? pantoprazole 40 mg twice daily ? tetracycline 500 mg four times daily -Return to the ED or call EMS if symptoms return and/or worsen. #NSTEMI II #Asymptomatic bradycardia #H. pylori infection #MASLD #Incidental liver lesions Patient plan of care was discussed with the attending physician, Dr. Sophia Narvaez, PGY2 Time Spent with Patient Time attestation: Total time spent providing and/or coordinating discharge services: 33 minutes Time spent: Greater than 30 minutes Exam Vital Signs Temp Pulse Resp BP Pulse Ox O2 Del Method O2 Flow Rate 98.5 F 78 18 124/77 93 L Room Air 2 04/18/25 12:00 04/18/25 12:00 04/18/25 12:00 04/18/25 12:00 04/18/25 12:00 04/18/25 12:00 04/17/25 08:00 Narrative Exam General: Awake. HEENT: Normocephalic, atraumatic, mucous membranes moist. Heart: Regular rate and rhythm, no murmurs. Lungs: Clear to auscultation with no wheezing or crackles. Abdomen: Soft, nondistended, nontender, positive bowel sounds. ?No guarding or rebound tenderness. Neurologic: Alert and oriented x3, no gross neurological deficit, and patient able to move all 4 extremities. Extremities: No edema. Skin: No rash or ecchymoses. Discharge Plan Plan Patient Disposition: HOME (Self Care) Patient condition on transfer: Stable Care Plan Goals: Discharge Recommendations: -Follow up with PCP within 1 week of discharge -Continue rest of medications as previously prescribed, including your medications for H. pylori infection for the next 9 days -The following medications have been sent to your pharmacy: ? bismuth subsalicylate 300 mg four times daily ? metronidazole 500 mg four times daily ? pantoprazole 40 mg twice daily ? tetracycline 500 mg four times daily -Return to the ED or call EMS if symptoms return and/or worsen. Prescriptions/Referrals Prescriptions/Med Rec: New metronidazole 250 mg Tablet 500 mg PO QID 9 Days Qty: 72 0RF tetracycline 250 mg Capsule 500 mg PO QID 9 Days Qty: 72 0RF pantoprazole 40 mg Tablet,Delayed Release (Dr/Ec) 40 mg PO BID 9 Days Qty: 18 0RF bismuth subsalicylate [Pepto-Bismol] 262 mg/15 mL Suspension 300 mg PO QID 9 Days Qty: 618.322 0RF Continued acetaminophen [Tylenol] 325 mg tablet 650 mg PO Q4H PRN (Reason: pain) Referrals: No Primary/Family,Physician [Primary Care Provider] Zohaib Franco MD [Physician, Cardiology] Patient/Caregiver Discharge Instructions Discharge Activity: activity as tolerated and resume usual activities Education Materials: Having Cardiac Catheterization, Cardiac Catheterization Dc, Warning Signs of a Heart Attack, Cardiac Cath Transradial Print Language: Armenian Stand Alone Forms: Stephenie Award Info., Patient Portal Info Letter Discharge Order Discharge Orders: Discharge (Routine); Ordered 04/18/25 Ordered By: Kiara Verde Quality Discharge Quality Measures VTE prophylaxis MD Attestestation MD Attestation I have seen and examined the patient. I was physically present for the puente portions of the services provided including history, physical exam, diagnosis, treatment plans and orders. I agree with assessment and plan of care as documented by residents. Even though this this note was carefully revised there may still be minor errors in military professional due to voice recognition software. Melina Cortes MD
[2025-04-18 16:00] VITALS: BP 119/79; PULSE 55; RESP 18; TEMP 37.1; O2SAT 95
--- NOTE | 2025-04-18 16:03 | PC.NURSE ---
MD diana and lynn made aware of pt HR lowest at 35 last night and today, no new orders at this time, per MD pt okay to discharge, Confirmed with MD pt does not have antibiotics for treatment of H pylori at home per family and pt at bedside, per MD to order prescription for home, Discharge education completed with patient and family at bedside using language line translation, patient understanding when to take off tegaderm and medications at home, all questions from patient and family answered, patient alert and oriented x4
--- NOTE | 2025-04-18 18:02 | PC.NURSE ---
confirmed prescription sent to correct pharmacy and with MD prescription completed, completed all education with patient and medication administration next time with patient understanding, patient alert oriented x4, pt not reporting pain at this time, all IVs removed with hemostasis achieved, [employer] used ID [id number], All patient belongings collected with patient and family agreeable, patient discharged in wheelchair with family to awaiting car
== END 2025-04-18 17:05 | disposition home or self-care (01) | DRG 190 ==
LOC: SERX 13:04 → SERHOLD 04-16 09:13 → S2NX 04-16 09:13
PROVIDERS: Emergency Medicine; Internal Medicine; Admitting Provider Student in an Organized Health Care Education/Training Program; Emergency Provider Emergency Medicine; Visit Provider Student in an Organized Health Care Education/Training Program
DX: I21.4 Non-ST elevation (NSTEMI) myocardial infarction (principal); E78.5 Hyperlipidemia, unspecified; R00.1 Bradycardia, unspecified; K76.0 Fatty (change of) liver, not elsewhere classified; B96.81 Helicobacter pylori [H. pylori] as the cause of diseases classified elsewhere; I25.10 Atherosclerotic heart disease of native coronary artery without angina pectoris; Z79.82 Long term (current) use of aspirin; F41.9 Anxiety disorder, unspecified
CPT/HCPCS: 36415; 71045; 74183; 76705; 80053; 80061; 81001; 81025; 82150; 82248; 83036; 83690; 83735; 83880; 84443; 84484; 85025; 85379; 85610; 85730; 87502; 87811; 93005; 93306; 96361; 96365; 96366; 96375; 96376; 99152; 99284; A4649; A9577; C1769; C1894; J0153; J0168; J0282; J0461; J0583; J1643; J1644; J2060; J2250; J2270; J2312; J2371; J2405; J2470; J2765; J3010; J3490; J7030; J7120; Q9967; A9270; J2305